=== PATIENT | female | born 1945 | race Caucasian/White ===

== ENCOUNTER → 2018-08-29 13:42 | Outpatient (CLI) | payer MEDICARE, SELFPAY | PROVIDERS: Family Provider Internal Medicine; PCP Internal Medicine; Visit Provider Internal Medicine | DX: M81.0 Age-related osteoporosis without current pathological fracture (principal); Z78.0 Asymptomatic menopausal state; Z87.891 Personal history of nicotine dependence | CPT/HCPCS: 77080 ==

== ENCOUNTER → 2019-01-01 13:36 | Outpatient (CLI) | payer MEDICARE, SELFPAY ==
--- NOTE | 2019-01-01 | DI.ECHO.S_ITS ---
[facility]---------+ [facility] +---------+ : : [address] : : : : [id number] : : : : Phone: [phone]+ Echocardiogram Report + + :Name: TIERRA GIPSON Study Date: 01/01/2019 Height: 65 in : :[facility] Weight: 130 lb : : Gender: Female BSA: 1.6 m2 : :: 1945 Age: 73 yrs BP: 142/78 mmHg: :Reason For Study: Atrial fibrillation : : Performed By: Kateryna Lawrence : :Referring: EDUARDO TAFOYA : + + Interpretation Summary Left ventricular systolic function is moderately reduced with the ejection fraction estimated to be 40-45% with moderate global hypokinesis but no focal wall motion abnormalities and appears slightly less dynamic compared to the previous study. Left ventricular size is at the upper limits of normal and is slightly larger compared to the previous study. The right ventricle is moderately dilated and systolic function is mild to moderately reduced and appears slightly less dynamic compared to the previous study. The right ventricular systolic pressure is estimated to be at least 43 mmHg based on an estimated right atrial pressure of 15 mm Hg, and is likely higher than on the previous study. There is severe biatrial enlargement. Both atria have mildly increased in size since the prior echo exam. There is prolapse of the posterior mitral valve leaflet producing moderate to severe mitral regurgitation. There is moderate to severe tricuspid regurgitation. Both are more prominent compared to the previous study. The aortic valve is moderately calcified with minimal aortic stenosis. The patient was in atrial fibrillation with heart rates between 74-89 bpm during the exam. Procedure: A two-dimensional transthoracic echocardiogram with color flow and Doppler was performed. The study quality was technically good. Comparison is made with the echocardiogram of 11-28-17. The patient was in atrial fibrillation with heart rates between 74-89 bpm during the exam. Left Ventricle: Left ventricular size is at the upper limits of normal. This is slightly larger compared to the previous study. There is normal left ventricular wall thickness. Left ventricular systolic function is moderately reduced. The ejection fraction is estimated to be 40-45%. There is moderate global hypokinesis of the left ventricle. There are no focal wall motion abnormalities. This is slightly less dynamic compared to the previous study. Diastolic function could not be accurately assessed due to atrial fibrillation. Right Ventricle: The right ventricle is moderately dilated. Right ventricular systolic function is mild to moderately reduced. This is slightly less dynamic compared to the previous study. Atria: There is severe biatrial enlargement. Both atria have mildly increased in size since the prior echo exam. The interatrial septum is intact with no evidence for an atrial septal defect. Mitral Valve: The mitral valve leaflets appear moderately thickened, but open well. There is mild calcification extending into the subvalvular apparatus. There is prolapse of the posterior mitral valve leaflet(s). There is moderate to severe mitral regurgitation. This is slightly more prominent compared to the previous study. Aortic Valve: The aortic valve is trileaflet. The aortic valve is moderately calcified. Leaflet mobility is moderately reduced. There is mild aortic stenosis. The calculated aortic valve area is 1.4 cm2. The aortic valve area is 1.2 centimeters squared by planimetry. The peak aortic velocity is 1.6 m/sec. The peak aortic velocity on the previous exam was 1.4 m/sec. The aortic valve mean gradient is 6 mmHg. Severity ratio is 0.41. There is trace aortic regurgitation. Tricuspid Valve: The tricuspid valve leaflets are thin and pliable. There is moderate to severe tricuspid regurgitation. This is more prominent compared to the previous study. The right ventricular systolic pressure is estimated to be at least 43 mmHg based on an estimated right atrial pressure of 15 mm Hg. Likely higher than on the previous study. Pulmonic Valve: The pulmonic valve is not well visualized. There is trace pulmonic regurgitation. This is unchanged compared to the previous study. Great Vessels: The aortic root is normal size. The dimensions of the ascending aorta are normal. The aortic arch could not be visualized. The IVC is dilated (diameter is greater than 2.1 cm) and it collapses less than 50% with a sniff. This suggests a high right atrial pressure of 15 mm Hg. Pericardium/ Pleura There is no pericardial effusion. There is no pleural effusion. MMode/2D Measurements & Calculations LVIDd: 4.9 cm LVOT diam: 2.1 cm LVIDs: 3.8 cm Ao root diam: 3.3 cm FS: 20.9 % Aortic Jxn: 2.8 cm EPSS: 0.56 cm asc Aorta Diam: 3.2 cm IVSd: 0.92 cm LVPWd: 0.78 cm LV mendez. diameter/BSA (cm/m^2): 3.0 LV sys. diameter/BSA (cm/m^2): 2.3 LA dimension: 4.7 cm RA long axis: 6.5 cm LA A2 area: 33.4 cm2 RA area: 33.7 cm2 LA A4 area: 36.0 cm2 RA vol: 147.3 ml LA length (vol): 7.4 cm RA : 89.4 ml/m2 LA vol: 138.1 ml IVC diam: 2.7 cm LA vol index: 83.8 ml/m2 RVDd major: 7.2 cm RVD1 (basal): 4.3 cm RVD2 (mid): 3.3 cm YOVANY (plan): 1.2 cm2 Doppler Measurements & Calculations Ao V2 max: 160.8 cm/sec LVOT Max Mani: 69.5 cm/sec Ao V2 mean: 114.2 cm/sec LV V1 max P.9 mmHg Ao max P.3 mmHg LV V1 VTI: 13.6 cm Ao mean P.8 mmHg YOVANY(I,D): 1.4 cm2 Ao V2 VTI: 32.9 cm YOVANY(V,D): 1.4 cm2 sev ratio: 0.41 YOVANY indexed to BSA (cm^2/m^2): 0.83 MV P1/2t: 51.4 msec TR max mani: 263.9 cm/sec MVA(VTI): 2.6 cm2 TR max P.9 mmHg MR ERO: 0.35 cm2 PA V2 max: 48.7 cm/sec PA V2 mean: 28.6 cm/sec PA mean P.43 mmHg PA Accel Time: 0.09 sec MV V2 mean: 40.6 cm/sec MV P1/2t max mani: 80.7 cm/sec MV mean P.87 mmHg MVA(P1/2t): 4.3 cm2 MV V2 VTI: 17.1 cm MR flow rate: 157.3 cm3/sec SV(LVOT): 45.3 ml MR PISA radius: 0.80 cm Reading Physician:TERRI
== END ==
PROVIDERS: Family Provider Internal Medicine; PCP Internal Medicine; Visit Provider Hospitalist
DX: I08.1 Rheumatic disorders of both mitral and tricuspid valves (principal); I48.2 Chronic atrial fibrillation
CPT/HCPCS: 93306

== ENCOUNTER → 2020-09-15 13:11 | Outpatient (CLI) | payer MEDICARE, SELFPAY ==
--- NOTE | 2020-09-15 | DI.MRI.S_ITS ---
PROCEDURE: MR LUMBAR SPINE WO CON INDICATIONS: Other intervertebral disc degeneration, lumbar reg TECHNIQUE: Noncontrast sagittal T1 spin echo and T2 fast echo, sagittal STIR, axial T1 and T2 fast spin echo through the lumbar spine. In cases with scoliosis, additional coronal T2 fast spin echo may be performed. COMPARISON: [facility], CR, XR LUMBAR SPINE 2 OR 3 VIEWS, 08/22/2020, 13:37. [facility], MR, L-SPINE WITHOUT CONTRAST, 07/13/2017, 13:35. FINDINGS: Image quality: Excellent. Alignment and Curvature: There is normal bony alignment. Bone Marrow: There is a mild acute or subacute compression fracture of the superior endplate of L4 with approximately 20% anterior vertebral body height loss. There is no bony retropulsion noted. Spinal Cord: Conus medullaris terminates at the L1 level. Visualized cord demonstrates normal signal and size. Paraspinous Soft Tissues: No paravertebral masses. T12-L1: Minimal disc bulge. Mild facet hypertrophy. No canal stenosis or foraminal stenosis. L1-L2: Mild disc bulge. Facet and ligament hypertrophy. No central canal stenosis. Mild bilateral foraminal stenosis. L2-L3: Disc bulge, facet and ligament hypertrophy, jmbu-[id number] canal stenosis. This is not significantly changed. Bilateral nozv-xi-[id number] foraminal stenosis with flattening deformity on the exiting bilateral L2 nerve roots. L3-L4: Mild disc bulge. Facet and ligament hypertrophy. Unchanged borderline canal stenosis. Zghg-wp-vlxlikee right and moderate left foraminal narrowing with flattening deformity on the exiting bilateral L3 nerve roots. L4-L5: Unchanged posterior disc post osteophyte. Facet and ligament hypertrophy. Unchanged mild canal stenosis. Moderate right foraminal narrowing and mild to moderate left foraminal narrowing with mild flattening deformity on the exiting bilateral L4 nerve roots. L5-S1: Disc bulge. Facet hypertrophy. No canal stenosis. Moderate right foraminal narrowing with flattening deformity on the exiting right L5 nerve root. IMPRESSION: 1. Mild acute or subacute superior endplate compression fracture of L4. No posterior bony retropulsion. 2. Diffuse degenerative change. 3. Multilevel canal stenosis is mild to moderate at L2-L3, borderline at L3-L4, and mild at L4-L5. 4. Multilevel foraminal narrowing as described above. Dictated by: Narinder Weiss M.D. on 09/15/2020 at 14:54 Approved by: Narinder Weiss M.D. on 09/15/2020 at 15:04
== END ==
PROVIDERS: Family Provider Internal Medicine; PCP Internal Medicine; Referring Provider Internal Medicine; Visit Provider Orthopaedic Surgery
DX: M48.56XA Collapsed vertebra, not elsewhere classified, lumbar region, initial encounter for fracture (principal); M51.36 Other intervertebral disc degeneration, lumbar region; M47.816 Spondylosis without myelopathy or radiculopathy, lumbar region; M48.061 Spinal stenosis, lumbar region without neurogenic claudication
CPT/HCPCS: 72148

== ENCOUNTER → 2021-08-03 10:57 | Outpatient (CLI) | payer MEDICARE, SELFPAY | PROVIDERS: Family Provider Internal Medicine; PCP Internal Medicine; Referring Provider Dermatology MOHS-Micrographic Surgery; Visit Provider Family Medicine | DX: T81.31XA Disruption of external operation (surgical) wound, not elsewhere classified, initial encounter (principal); S81.802A Unspecified open wound, left lower leg, initial encounter; R60.0 Localized edema; Z79.01 Long term (current) use of anticoagulants | CPT/HCPCS: 11042; 99204; 99213 ==

== ENCOUNTER → 2021-08-10 14:16 | Outpatient (CLI) | payer MEDICARE, SELFPAY | PROVIDERS: Family Provider Internal Medicine; PCP Internal Medicine; Referring Provider Internal Medicine; Visit Provider Family Medicine | DX: T81.31XA Disruption of external operation (surgical) wound, not elsewhere classified, initial encounter (principal); S81.802A Unspecified open wound, left lower leg, initial encounter; L08.9 Local infection of the skin and subcutaneous tissue, unspecified; R60.0 Localized edema; Z79.01 Long term (current) use of anticoagulants | CPT/HCPCS: 11042; 87070; 87075; 87077; 87147; 87186; 87205; 99213 ==

== ENCOUNTER → 2021-08-17 13:50 | Outpatient (CLI) | payer MEDICARE, SELFPAY | PROVIDERS: Family Provider Internal Medicine; PCP Internal Medicine; Referring Provider Internal Medicine; Visit Provider Family Medicine | DX: T81.89XA Other complications of procedures, not elsewhere classified, initial encounter (principal); S81.802A Unspecified open wound, left lower leg, initial encounter; L08.9 Local infection of the skin and subcutaneous tissue, unspecified; B95.7 Other staphylococcus as the cause of diseases classified elsewhere; L53.8 Other specified erythematous conditions; R60.0 Localized edema; I48.91 Unspecified atrial fibrillation; Z79.01 Long term (current) use of anticoagulants; Z85.828 Personal history of other malignant neoplasm of skin | CPT/HCPCS: 11042; 99213 ==

== ENCOUNTER → 2021-08-19 12:00 | Outpatient (CLI) | payer MEDICARE, SELFPAY | PROVIDERS: Family Provider Internal Medicine; PCP Internal Medicine; Referring Provider Internal Medicine; Visit Provider Family Medicine | DX: S81.802A Unspecified open wound, left lower leg, initial encounter (principal); R60.0 Localized edema | CPT/HCPCS: 29581 ==

== ENCOUNTER → 2021-08-24 13:34 | Outpatient (CLI) | payer MEDICARE, SELFPAY | PROVIDERS: Family Provider Internal Medicine; PCP Internal Medicine; Referring Provider Internal Medicine; Visit Provider Family Medicine | DX: I87.2 Venous insufficiency (chronic) (peripheral) (principal); L97.812 Non-pressure chronic ulcer of other part of right lower leg with fat layer exposed; L08.89 Other specified local infections of the skin and subcutaneous tissue; B95.2 Enterococcus as the cause of diseases classified elsewhere; R60.0 Localized edema; I48.91 Unspecified atrial fibrillation; Z79.01 Long term (current) use of anticoagulants; Z85.828 Personal history of other malignant neoplasm of skin | CPT/HCPCS: 11042; 99214 ==

== ENCOUNTER → 2021-08-31 15:32 | Outpatient (CLI) | payer MEDICARE, SELFPAY | PROVIDERS: Family Provider Internal Medicine; PCP Internal Medicine; Referring Provider Internal Medicine; Visit Provider Family Medicine | DX: T81.31XA Disruption of external operation (surgical) wound, not elsewhere classified, initial encounter (principal); I87.2 Venous insufficiency (chronic) (peripheral); L97.822 Non-pressure chronic ulcer of other part of left lower leg with fat layer exposed; R60.0 Localized edema; Z79.01 Long term (current) use of anticoagulants; Z85.828 Personal history of other malignant neoplasm of skin | CPT/HCPCS: 11042 ==

== ENCOUNTER 2021-09-05 21:46 | Emergency (ER) | payer MEDICARE, SELFPAY ==
[2021-09-05 21:54] VITALS: BP 188/102; PULSE 94; RESP 12; TEMP 36.6; O2SAT 100; BMI 20.2
--- NOTE | 2021-09-05 22:00 | PC.NURSE ---
pt c/o hypertension this past week stated h/a was gone and the later in conversation c/o h/a no c/p at this time, pt has vague c/o, nadn resp even and unlabored
[2021-09-05 22:06] VITALS: PULSE 124; RESP 31; O2SAT 100
[2021-09-05 22:30] VITALS: BP 161/105; PULSE 89; RESP 22; O2SAT 98
[2021-09-05 23:00] VITALS: BP 151/97; PULSE 83; RESP 15; O2SAT 99
--- NOTE | 2021-09-05 23:21 | ED_ITS ---
HPI - General Adult General Chief complaint: Hypertension Stated complaint: HTN, vision changes Time Seen by Provider: 09/05/21 22:56 Source: patient and EMS Mode of arrival: EMS History of Present Illness HPI narrative: Patient is a 76-year-old female. Has history of atrial fibrillation. Is on atenolol. Is on warfarin. No history of hypertension. She states that a couple days ago she was driving in to town in order to get her protime checked when she had vision changes. It lasted only few seconds/minutes. Completely resolved. She has also had slight headache over the past couple days which seemed to get worse today. She did take an extra dose of her atenolol. She took her blood pressure at home and it was elevated. She is unsure exactly what the blood pressure was. She had a neighbor who is a nurse who advised she come to the emergency department. States that she still currently has a headache but is much better than what it was earlier today. Related Data Home Medications Medication Instructions Recorded Confirmed ATENOLOL (Tenormin) 12.5 mg PO Q DAY #0 05/03/08 CALCIUM CARBONATE/VITAMIN D3 600 mg PO Q DAY #0 05/03/08 (Oyster Shell Calcium-Vit D Tab) MULTIVITAMIN (Multivitamin 1 cap PO EVERY DAY #0 05/03/08 -) VITAMIN C - 1,000 mg PO Q DAY #0 05/03/08 (VITAMIN C) warfarin 6 mg tablet (Coumadin) 12.5 mg PO QDAY #0 01/12/13 Allergies Allergy/AdvReac Type Severity Reaction Status Date / Time cephalexin Allergy Unknown Unverified 11/02/17 11:57 levofloxacin Allergy Unknown Unverified 11/02/17 11:57 Penicillins Allergy Unknown Unverified 11/02/17 11:57 Review of Systems Constitutional Constitutional: Denies fever(s) and Reports headache(s) Eyes Eyes: Reports as per HPI and Reports system reviewed and no additional compl aints, except as documented ENT Ears, Nose, Mouth, and Throat: Reports headache(s) Cardiovascular Cardiovascular: Denies chest pain and Denies dyspnea Respiratory Respiratory: Denies dyspnea Gastrointestinal Gastrointestinal: Reports system reviewed and no additional complaints, except as documented Integumentary/Breasts Skin/Breast: Reports system reviewed and no additional complaints, except as documented Neurologic Neurologic: Reports headache(s) Hematologic/Lymphatic On Anticoagulants: Yes Patient History Medical History Atrial fibrillation Sacral dysfunction Scoliosis Social History Smoking Status: Former smoker Smoking Status: Former smoker alcohol intake frequency: 0-2 drinks per day Substance Use Type: does not use Exam Initial Vital Signs Initial Vital Signs: Vital Signs Temperature 97.9 F 09/05/21 21:54 Pulse Rate 94 H 09/05/21 21:54 Respiratory Rate 12 09/05/21 21:54 Blood Pressure 188/102 H 09/05/21 21:54 Pulse Oximetry 100 09/05/21 21:54 HENMT Head: normal to inspection and normocephalic Resp Effort & Inspection: normal respiratory effort Auscultation: clear to auscultation bilaterally Cardio Rate: regular rate Rhythm: abnormal rhythm Skin General: no rashes or lesions noted Neuro General: patient alert, patient awake, patient oriented x3 and moves all extremities Extrem General: No edema Psych Appearance: grossly normal and well kempt Course Orders Ordered: ED Orders 09/05/21 22:13 EKG-12 Lead Stat Vital Signs Vital signs: Vital Signs - 8 hr 09/05/21 21:54 09/05/21 22:06 09/05/21 22:30 Temperature 97.9 F Pulse Rate 94 H 124 H 89 Respiratory Rate 12 31 H 22 Blood Pressure 188/102 H 161/105 H Pulse Oximetry 100 100 98 09/05/21 23:00 Temperature Pulse Rate 83 Respiratory Rate 15 Blood Pressure 151/97 H Pulse Oximetry 99 Medical Decision Making ECG Data Attestation: I personally reviewed and interpreted this ECG as follows: Interpretation: Atrial fibrillation Ventricular rate 81 Occasional previous C Normal QRS Normal QTC LVH No ST T wave changes MDM Narrative Medical decision making narrative: Patient's blood pressure today is elevated but not at the point that would require an emergent reduction here in the emergency department. She has a normal neurologic exam. She does have atrial fibrillation on her EKG but sounds like she is in persistent AFib. She does not have a history of high blood pressure. I have low suspicion for ACS. Low suspicion for CVA. Low suspicion for TIA. Patient not clinically in heart failure. I feel that we can hold on further workup for now. I did discuss the importance of taking her blood pressure at home so that she can talk with her primary doctor about potentially starting her on some medications if it is persistently elevated. She was given strict return precautions and follow-up instructions. She expressed understanding and agreement. Discharge Plan Departure Patient Disposition: Home Clinical Impression: Hypertension Instructions: DI for High Blood Pressure Activity Restrictions/Additional Instructions: Take your blood pressure at home like we discussed and continue to take all of your medications as directed. Contact your primary doctor on Tuesday for a follow-up. Return to the emergency department for any new or worsening symptoms. Prescriptions: No Action ATENOLOL (Tenormin) 12.5 mg PO Q DAY Qty: 0 0RF CALCIUM CARBONATE/VITAMIN D3 (Oyster Shell Calcium-Vit D Tab) 600 mg PO Q DAY Qty: 0 0RF MULTIVITAMIN (Multivitamin -) 1 cap PO EVERY DAY Qty: 0 0RF VITAMIN C - (VITAMIN C) 1,000 mg PO Q DAY Qty: 0 0RF warfarin [Coumadin] 6 MG tablet 12.5 mg PO QDAY Qty: 0 0RF Referrals: Trevon Winslow MD [Primary Care Provider] -
== END 2021-09-05 23:33 | disposition home or self-care (01) ==
PROVIDERS: Emergency Provider Emergency Medicine; Family Provider Internal Medicine; PCP Internal Medicine
DX: I10 Essential (primary) hypertension (principal); I48.91 Unspecified atrial fibrillation; Z79.01 Long term (current) use of anticoagulants; Z87.891 Personal history of nicotine dependence
CPT/HCPCS: 93005; 93010; 99283

== ENCOUNTER → 2021-09-08 14:06 | Outpatient (CLI) | payer MEDICARE, SELFPAY | PROVIDERS: Family Provider Internal Medicine; PCP Internal Medicine; Referring Provider Internal Medicine; Visit Provider Family Medicine | DX: T81.31XA Disruption of external operation (surgical) wound, not elsewhere classified, initial encounter (principal); I87.2 Venous insufficiency (chronic) (peripheral); L97.812 Non-pressure chronic ulcer of other part of right lower leg with fat layer exposed; L08.9 Local infection of the skin and subcutaneous tissue, unspecified; R60.0 Localized edema; Z79.01 Long term (current) use of anticoagulants; Z85.828 Personal history of other malignant neoplasm of skin | CPT/HCPCS: 11042; 87070; 87075; 87077; 87186; 87205; 99213 ==

== ENCOUNTER → 2021-09-10 11:07 | Outpatient (CLI) | payer MEDICARE, SELFPAY | PROVIDERS: Family Provider Internal Medicine; PCP Internal Medicine; Referring Provider Internal Medicine; Visit Provider Family Medicine | DX: I87.2 Venous insufficiency (chronic) (peripheral) (principal); L97.822 Non-pressure chronic ulcer of other part of left lower leg with fat layer exposed | CPT/HCPCS: 29580 ==

== ENCOUNTER → 2021-09-17 15:02 | Outpatient (CLI) | payer MEDICARE, SELFPAY | PROVIDERS: Family Provider Internal Medicine; PCP Internal Medicine; Referring Provider Internal Medicine; Visit Provider Family Medicine | DX: I87.2 Venous insufficiency (chronic) (peripheral) (principal); L97.822 Non-pressure chronic ulcer of other part of left lower leg with fat layer exposed | CPT/HCPCS: 29580 ==

== ENCOUNTER → 2021-09-21 13:08 | Outpatient (CLI) | payer MEDICARE, SELFPAY | PROVIDERS: Family Provider Internal Medicine; PCP Internal Medicine; Referring Provider Internal Medicine; Visit Provider Family Medicine | DX: T81.31XA Disruption of external operation (surgical) wound, not elsewhere classified, initial encounter (principal); I87.2 Venous insufficiency (chronic) (peripheral); L97.822 Non-pressure chronic ulcer of other part of left lower leg with fat layer exposed; R60.0 Localized edema; I10 Essential (primary) hypertension; Z79.01 Long term (current) use of anticoagulants; Z85.828 Personal history of other malignant neoplasm of skin | CPT/HCPCS: 99212; 99213 ==

== ENCOUNTER → 2021-09-26 12:38 | Outpatient (CLI) | payer MEDICARE, SELFPAY ==
--- NOTE | 2021-09-26 | DI.MRI.S_ITS ---
PROCEDURE: MR LUMBAR SPINE WO CON INDICATIONS: SPINAL STENOSIS TECHNIQUE: Noncontrast sagittal T1 spin echo and T2 fast echo, sagittal STIR, axial T1 and T2 fast spin echo through the lumbar spine. In cases with scoliosis, additional coronal T2 fast spin echo may be performed. COMPARISON: [facility], MR, MR LUMBAR SPINE WO CON, 09/15/2020, 13:30. FINDINGS: Straightening of the usual lumbar lordosis. Otherwise normal alignment. Vertebral body heights maintained. No suspicious focal marrow signal abnormality. Mild discogenic marrow edema at the opposing endplates from L3-L4 through L5-S1 with small Schmorl nodes. Facet hypertrophy from L2-L3 through L5-S1 with varying degrees of mild periarticular bone marrow edema and small facet effusions. Normal position and appearance of the conus. Prevertebral and paraspinous soft tissues are normal in appearance. T12-L1: No spinal canal or neural foraminal stenosis. L1-L2: Flattening of the ventral thecal sac by diffuse disc bulge without mass effect upon the traversing L2 nerve roots. Foraminal components of the disc bulge and facet hypertrophy combine to produce mild bilateral neural foraminal stenosis. L2-L3: Flattening of the ventral thecal sac by diffuse disc bulge with mild displacement of the descending right L3 nerve roots in the right subarticular zone. Mild bilateral neural foraminal stenosis due to foraminal components of the disc bulge and facet hypertrophy. L3-L4: No spinal canal stenosis despite diffuse disc bulge flattening the ventral thecal sac. Mild right and moderate left neural foraminal stenosis due to foraminal components of the disc bulge in conjunction with facet hypertrophy. L4-L5: Flattening of the ventral thecal sac by disc material without mass effect upon the traversing L5 nerve roots. Foraminal components of the disc bulge and facet hypertrophy combine to produce moderate right and mild left neural foraminal stenosis without apparent mass effect upon the exiting L4 nerve roots. L5-S1: Diffuse disc bulge flattens and indents the ventral thecal sac. Mild displacement of the descending S1 nerve roots in both subarticular zones. Moderate right and mild left neural foraminal stenosis due to foraminal components of the disc bulge and facet hypertrophy flattening the exiting right L5 nerve root. IMPRESSION: Multilevel multifactorial degenerative changes, worst at L5-S1. Dictated by: Desmond Nava M.D. on 09/28/2021 at 16:41 Approved by: Desmond Nava M.D. on 09/28/2021 at 16:45
== END ==
PROVIDERS: Family Provider Internal Medicine; PCP Internal Medicine; Referring Provider Orthopaedic Surgery; Visit Provider Orthopaedic Surgery
DX: M47.816 Spondylosis without myelopathy or radiculopathy, lumbar region (principal); M47.817 Spondylosis without myelopathy or radiculopathy, lumbosacral region; M48.062 Spinal stenosis, lumbar region with neurogenic claudication; M48.07 Spinal stenosis, lumbosacral region
CPT/HCPCS: 72148

== ENCOUNTER → 2021-09-28 13:34 | Outpatient (CLI) | payer MEDICARE, SELFPAY | PROVIDERS: Family Provider Internal Medicine; PCP Internal Medicine; Referring Provider Internal Medicine; Visit Provider Family Medicine | DX: T81.89XA Other complications of procedures, not elsewhere classified, initial encounter (principal); I87.2 Venous insufficiency (chronic) (peripheral); L97.822 Non-pressure chronic ulcer of other part of left lower leg with fat layer exposed; R60.0 Localized edema; I48.91 Unspecified atrial fibrillation; Z79.01 Long term (current) use of anticoagulants; Z85.828 Personal history of other malignant neoplasm of skin | CPT/HCPCS: 99212 ==

== ENCOUNTER → 2021-10-05 13:15 | Outpatient (CLI) | payer MEDICARE, SELFPAY | PROVIDERS: Family Provider Internal Medicine; PCP Internal Medicine; Referring Provider Internal Medicine; Visit Provider Family Medicine | DX: Z09 Encounter for follow-up examination after completed treatment for conditions other than malignant neoplasm (principal); I87.2 Venous insufficiency (chronic) (peripheral); I48.91 Unspecified atrial fibrillation; Z79.01 Long term (current) use of anticoagulants; Z85.828 Personal history of other malignant neoplasm of skin | CPT/HCPCS: 99212; 99213 ==

== ENCOUNTER → 2022-01-18 13:22 | Outpatient (CLI) | payer MEDICARE, SELFPAY ==
[2022-01-18 14:47] LABS: COVID19 -Nasal RAPID Negative (Negative)
== END ==
PROVIDERS: Family Provider Internal Medicine; PCP Internal Medicine; Visit Provider Physical Medicine & Rehabilitation
DX: Z20.822 Contact with and (suspected) exposure to COVID-19 (principal)
CPT/HCPCS: 87635; C9803

== ENCOUNTER 2022-01-19 13:39 | Outpatient (CLI) | payer MEDICARE, SELFPAY ==
[2022-01-19] VITALS (9 sets, daily range): BP systolic 126–154; BP diastolic 73–91; PULSE 66–76; RESP 12–21; TEMP 36.2; O2SAT 97–100
--- NOTE | 2022-01-19 13:41 | DI.RAD.S_ITS ---
PROCEDURE: PAIN L/S TRANSFORAM INJECT DAQUAN COMPARISON: MRI lumbar spine, 09/26/2021. INDICATIONS: SPONDYLOSIS FINDINGS: 7 intraoperative fluoroscopy images demonstrate needle placement at L4-L5. IMPRESSION: Fluoroscopy for needle placement. Dictated by: Lissette Mckay M.D. on 01/19/2022 at 17:38 Approved by: Lissette Mckay M.D. on 01/19/2022 at 17:39
[2022-01-19] MEDS: MIDAZOLAM 2 MG/2 ML VIAL IV (15:06)
[2022-01-19] MEDS: BETAMETHASONE 30 MG/5 ML MDV 12 MG INJ (15:11)
[2022-01-19] MEDS: BUPIVACAINE 0.25% (PF) VIAL 2 ML INJ (15:12)
[2022-01-19] MEDS: IOPAMIDOL 15 ML VIAL 3 ML INJ (15:12)
[2022-01-19] MEDS: DEXAMETHASONE 10 MG/ML VIAL 20 MG INJ (15:12)
--- NOTE | 2022-01-19 15:28 | PM.PROC.IR.1 ---
Date/Time/Diagnoses Date of procedure: 01/19/22 Time of procedure: 15:28 Pre-procedure diagnosis: 1. FORAMINAL STENOSIS WITH LE SYMPTOMS Procedure Notes Procedure: 1. FLUOROSCOPICALLY GUIDED CONTRAST CONTROLLED TRANSFORAMINAL EPIDURAL STEROID INJECTION - BILATERAL L4/5 TFESI Indications: Caitlin is referred by Dr. Muñoz for treatment of Foraminal Stenosis with bilateral LE Symptoms Physician: Charlie Ramos Total Fluoroscopy time (seconds): 19 Total sedation minutes: 23 Complications: none Procedure in detail & Post-procedure care: FINDINGS Foraminal Nerve Root Compression secondary to disc disease and facet hypertrophy DESCRIPTION OF PROCEDURE Following review of allergy and review of potential side effects and complications, including, but not necessarily limited to, infection, allergic reaction, local tissue breakdown, stroke, temporary or permanent nerve injury, paralysis, and possible , the patient indicated that the patient understood and agreed to proceed. An informed consent document was signed by the patient, witnessed by a nurse, and placed in the patient's chart. Additionally, other treatment options including medications, modalities, and physical therapy were reviewed with the patient. After review of previous anaesthesic history and IV conscious sedation the patient was deemed safe to proceed with today?s procedure with IV conscious sedation as ASA class II designation. Safety time-out was performed to confirm patient ID, procedure to be performed and site of procedure. IV sedation was accomplished with a combination of 2mg of Versed was administered by the RN after DO order, titrated to patient comfort during the course of the procedure while the patient remained responsive to all verbal commands In the prone position following sterile prep and drape of the lumbar region, the right L4/5 posterior neuroforamen was identified fluoroscopically. The skin was anesthetized via a 25-gauge 1.5-inch needle with 1% lidocaine solution. At this point, a 25-gauge 3.5-inch spinal needle was atraumatically introduced and advanced under fluoroscopic guidance through the posterior right L4/5 neuroforamen to approximately the anterior aspect of the canal. Depth was confirmed on lateral view. Following negative aspiration, injection of approximately 1.5cc of Isovue 200 under live fluoroscopy in the AP view confirmed excellent flow along the nerve root, into the epidural space without vascular or intrathecal uptake observed Radiological data, including multiple fluoroscopic views of the lumbosacral spine, reveal a spinal needle at the right L4/5 posterior neuroforamen. Subsequent views show flow of contrast material flowing superiorly and inferiorly along the nerve root confirming epidural flow. Subsequently, a test dose of 1.5cc of 1% lidocaine solution was administered and patient was observed for two minutes for signs or symptoms of complications, including abdominal pain, shortness of breath, bilateral upper or lower extremity weakness, nausea and vomiting, prior to steroid injection. At this point, a total of 3cc or 20mg of dexamethasone and 6mg betamethasone was injected without incident. Attention was then refocused to the left L4/5 level where the identical procedure was replicated. The procedure tolerated the procedure well without signs or symptoms of complications prior to transfer to the recovery area continued monitoring without incident. The patient was then transferred to the recovery area where they were observed for an appropriate time after the injection. The patient reported a VAS score of 7 prior to the procedure and a post-procedure VAS of 0. POST OP INSTRUCTIONS The patient was provided a Pain Log to continue to record their response to the target-specific procedure prior to follow-up visit with their referring physician. Additionally, specific post-injection care instructions and a contact number to our office were provided if concerns arise regarding possible complications associated with the procedure are suspected.
== END 2022-01-19 15:44 | disposition home or self-care (01) ==
LOC: RAD 13:41
PROVIDERS: Family Provider Internal Medicine; PCP Internal Medicine; Referring Provider Physical Medicine & Rehabilitation; Visit Provider Physical Medicine & Rehabilitation
DX: M48.061 Spinal stenosis, lumbar region without neurogenic claudication (principal); M51.16 Intervertebral disc disorders with radiculopathy, lumbar region
CPT/HCPCS: 64483; 99152; 99153; J0702; J1100; J2250

== ENCOUNTER → 2022-07-31 14:06 | Outpatient (CLI) | payer MEDICARE, SELFPAY ==
--- NOTE | 2022-07-31 14:08 | DI.MRI.S_ITS ---
PROCEDURE: MR HEAD/BRAIN WO CON INDICATIONS: HEADACHES TECHNIQUE: Noncontrast axial T1 spin echo, axial T2 fast spin echo, sagittal and axial FLAIR, coronal T2 fast spin echo, axial gradient echo, axial diffusion and ADC through the brain. COMPARISON: None. FINDINGS: Image quality: Excellent. CSF Spaces: Basal cisterns are patent. No extra-axial fluid collections. Ventricles are normal in size and shape. Brain: No intracranial masses or hemorrhage. Serrato/white matter interface is normal. Brainstem appears normal. Diffusion-weighted sequence is unremarkable without evidence of acute infarct. Normal intravascular flow voids are present. Atrophy and chronic ischemic change noted Skull and face: Calvarium has normal marrow signal. Orbits appear normal. Bilateral intraocular lens replacements noted. Sinuses: Sinuses and mastoids are clear. IMPRESSION: Mild atrophy and chronic ischemic change without acute infarct, hemorrhage or mass lesion Approved by: Leon French M.D. on 08/01/2022 at 9:06
== END ==
PROVIDERS: Family Provider Internal Medicine; PCP Internal Medicine; Referring Provider Internal Medicine; Visit Provider Internal Medicine
DX: R51.9 Headache, unspecified (principal)
CPT/HCPCS: 70551

== ENCOUNTER → 2022-10-07 12:32 | Outpatient (CLI) | payer MEDICARE, SELFPAY ==
--- NOTE | 2022-10-07 | DI.US.S_ITS ---
PROCEDURE: US PERIPH VENOUS LOW EXTREM LT INDICATIONS: LEFT LEG SWELLING TECHNIQUE: Real-time imaging, as well as color and pulse Doppler interrogation, were performed of the lower extremity deep veins from the inguinal ligament to the popliteal fossa. COMPARISON: US, US VENOUS REFLUX DPLX DAQUANAT, 04/02/2016, 13:42. FINDINGS: The common femoral, femoral and popliteal veins are normally compressible, and free of intraluminal thrombus. Mild wall thickening anteriorly seen involving the left common femoral and mid left superficial femoral vein Color and pulse Doppler demonstrate normal phasic intraluminal flow. There is normal augmentation response to distal compression maneuver. IMPRESSION: 1. No acute DVT. 2. Mild anterior wall thickening of the left common femoral and mid superficial femoral vein which may be related to chronic DVT. Dictated by: Mike PARDO Interpreted: Nithya Jimenez MD on 10/07/2022 at 13:15 Transcribed by: MAGALIS on 10/07/2022 at 13:17 Approved by: Nithya Jimenez M.D. on 10/07/2022 at 20:20
== END ==
PROVIDERS: Family Provider Internal Medicine; PCP Internal Medicine; Referring Provider Physician Assistant; Visit Provider Physician Assistant
DX: C44.729 Squamous cell carcinoma of skin of left lower limb, including hip (principal); M79.89 Other specified soft tissue disorders
CPT/HCPCS: 36415; 85610; 93971

== ENCOUNTER → 2022-10-07 14:10 | Outpatient (CLI) | payer MEDICARE, SELFPAY ==
[2022-10-07 15:51] LABS: INR 1.9 (0.9-1.3); Prothrombin Time 22.5 SECONDS (10.1-12.7)
== END ==
PROVIDERS: Family Provider Internal Medicine; PCP Internal Medicine; Referring Provider Dermatology MOHS-Micrographic Surgery; Visit Provider Dermatology MOHS-Micrographic Surgery
DX: C44.729 Squamous cell carcinoma of skin of left lower limb, including hip (principal)
CPT/HCPCS: 36415; 85610

== ENCOUNTER → 2022-10-09 09:39 | Outpatient (CLI) | payer MEDICARE, SELFPAY ==
--- NOTE | 2022-10-09 | DI.MRI.S_ITS ---
PROCEDURE: MR KNEE LT WO CON INDICATIONS: Pain in left knee TECHNIQUE: Noncontrast sagittal PD fast spin echo and T2 fast spin echo with fat saturation, sagittal 3-D FLASH with fat saturation; coronal T1 spin echo and PD fast spin echo with fat saturation, and axial PD fast spin echo with fat saturation through the knee. COMPARISON: [facility] [place], CR, XR KNEE 4+ VIEWS LEFT, 10/07/2022, 11:29. FINDINGS: Image quality: Excellent. Menisci: There is linear horizontal high T2 signal intensity traversing the inner, middle, and peripheral thirds of the posterior horn medial meniscus, demonstrating inferior articular surface extension, indicating horizontal tearing. There is linear horizontal high T2 signal intensity traversing the inner 3rd of the posterior horn lateral meniscus, demonstrating inferior articular surface extension, indicating horizontal tearing. Cruciate ligaments: The anterior and posterior cruciate ligaments appear intact. Medial structures: The medial collateral ligament appears intact. Visualized portions of the pes anserinus tendons appear normal. No abnormal bursal fluid. Lateral structures: The lateral collateral ligament, long and short heads of the biceps femoris tendon appear intact. The popliteus tendon appears normal. Iliotibial band appears normal. Anterior structures: The quadriceps and patellar tendons appear intact. There is mild T2 signal elevation within the quadriceps and patellar tendons at the patellar insertion site. Patellar alignment is normal. No femoral trochlear dysplasia or ventral trochlear prominence. No edema in the infrapatellar fat pad. Bones and cartilage: No bone marrow contusions or fractures. There is mild articular cartilage loss overlying the medial and lateral patellar facets. Severe articular cartilage loss diffusely overlies the weight-bearing aspects of the medial femoral condyle and medial tibial plateau. Joint space: There is a moderate knee joint effusion and a small Barron's cyst. Normal appearing synovial plicae are incidentally noted. IMPRESSION: 1. Tricompartmental osteoarthritis with associated articular cartilage loss. 2. Medial and lateral meniscal tearing. 3. Knee joint effusion and Barron's cyst. 4. Mild quadriceps and patellar tendinopathy. Dictated by: Randal Wolf M.D. on 10/11/2022 at 9:18 Approved by: Randal Wolf M.D. on 10/11/2022 at 9:21
== END ==
PROVIDERS: Family Provider Internal Medicine; PCP Internal Medicine; Referring Provider Physician Assistant Medical; Visit Provider Physician Assistant Medical
DX: S83.242A Other tear of medial meniscus, current injury, left knee, initial encounter (principal); S83.282A Other tear of lateral meniscus, current injury, left knee, initial encounter; M17.12 Unilateral primary osteoarthritis, left knee; M25.562 Pain in left knee; M25.462 Effusion, left knee; M71.22 Synovial cyst of popliteal space [Baker], left knee
CPT/HCPCS: 73721

== ENCOUNTER → 2023-01-20 16:49 | Outpatient (CLI) | payer MEDICARE, SELFPAY ==
--- NOTE | 2023-01-20 16:51 | DI.RAD.S_ITS ---
PROCEDURE: XR LUMBAR SPINE MIN 4V INDICATIONS: progressive LBP TECHNIQUE: 5 views of the lumbar spine were acquired, including bilateral oblique views. COMPARISON: [facility], , L-SPINE 2-3 VIEWS, 05/18/2012, 15:06. FINDINGS: Bones: 5 nonrib-bearing vertebrae are present. Slight rightward curvature of the lumbar spine. Severe disc height loss at L4-5, moderate disc height loss at L3-4 and L1-2, and [id number] at remaining levels. Facet arthrosis L3 through S1. Soft tissues: Overlying bowel gas pattern is normal. No suspicious soft tissue calcifications. Oblique images: No pars defects. IMPRESSION: Multilevel degenerative disc disease and facet arthrosis, ranging from mild-moderate to severe, and lower lumbar facet arthrosis. Dictated by: Tomás Chawla M.D. on 01/21/2023 at 9:39 Approved by: Tomás Chawla M.D. on 01/21/2023 at 9:41
== END ==
PROVIDERS: Family Provider Internal Medicine; PCP Internal Medicine; Referring Provider Physical Medicine & Rehabilitation; Visit Provider Physical Medicine & Rehabilitation
DX: M41.9 Scoliosis, unspecified (principal); M51.26 Other intervertebral disc displacement, lumbar region; M51.36 Other intervertebral disc degeneration, lumbar region; M47.816 Spondylosis without myelopathy or radiculopathy, lumbar region; M47.817 Spondylosis without myelopathy or radiculopathy, lumbosacral region
CPT/HCPCS: 72110

== ENCOUNTER 2023-03-22 12:31 | Outpatient (CLI) | payer MEDICARE, SELFPAY ==
[2023-03-22] VITALS (9 sets, daily range): BP systolic 137–161; BP diastolic 72–97; PULSE 70–85; RESP 14–20; TEMP 36.3; O2SAT 95–100
--- NOTE | 2023-03-22 12:34 | DI.RAD.S_ITS ---
PROCEDURE: PAIN L/S FACET INJ/BLK 1ST DAQUAN COMPARISON: [facility], CR, XR LUMBAR SPINE MIN 4V, 01/20/2023, 16:46. INDICATIONS: Bilateral L4-L5 and S1 medial branch block LA FINDINGS: Fluoroscopic spot filming was performed to verify placement of spinal needles on both sides at the L4, L5, and S1 levels, as labeled on the films. Appropriate location of the needle tips was confirmed by injection of iodinated contrast. IMPRESSION: Intraprocedural examination demonstrating appropriate positions of the needles. Dictated by: Feliz Cutler M.D. on 03/22/2023 at 19:55 Approved by: Feliz Cutler M.D. on 03/22/2023 at 19:56
[2023-03-22] MEDS: MIDAZOLAM 2 MG/2 ML VIAL IV (13:30)
[2023-03-22] MEDS: LIDOCAINE 1% 20 ML 5 ML INJ (13:41)
[2023-03-22] MEDS: BUPIVACAINE 0.5% (PF) 10 ML VIAL 3 ML INJ (13:42)
[2023-03-22] MEDS: IOPAMIDOL 15 ML VIAL 3 ML INJ (13:42)
--- NOTE | 2023-03-22 13:57 | P.PCN_ITS ---
Date/Time/Diagnoses Date of procedure: 03/22/23 Time of procedure: 13:57 Pre-procedure diagnosis: 1. FACET ARTHROPATHY Post-procedure diagnosis: same Procedure Notes Procedure: 1. BILATERAL- L4, L5 and S1 DIAGNOSTIC MB BLOCKS with LA Anesthetic Indications: Caitiln is referred by Dr. Winslow for treatment of Bilateral Axial LBP. Physician: Charlie Ramos Total Fluoroscopy time (seconds): 9 Total sedation minutes: 20 Complications: none Procedure in detail & Post-procedure care: DESCRIPTION OF PROCEDURE Fluoroscopically guided, contrast-controlled bilateral L4, L5 and S1 medial branch blocks with 0.5cc of 0.5% Marcaine. Following review of allergy and review of potential side effects and complications, including, but not necessarily limited to, infection, allergic reaction, local tissue breakdown, nerve injury, paralysis, stroke and possible , the patient indicated that the patient understood and agreed to proceed. An informed consent document was signed by the patient, witnessed by a nurse, and placed in the patient's chart. After review of previous anaesthesic history and IV conscious sedation the patient was deemed safe to proceed with today's procedure with IV conscious sedation as ASA class II designation. Safety time-out was performed to confirm patient ID, procedure to be performed and site of procedure. IV sedation was accomplished with a combination of 2mg of Versed was administered by the RN after DO order, titrated to patient comfort during the course of the procedure while the patient remained responsive to all verbal commands. In the prone position, following sterile prep and drape of the lumbar region, the right L4, L5 and S1 anatomical location of the medial branch of the dorsal ramus was identified fluoroscopically. Subsequently an anesthetic skin wheal using 1% lidocaine solution was initiated at each of the anatomical spots. Subsequently then a 22-gauge 3.5-inch spinal needle was atraumatically introduced and advanced under fluoroscopic guidance at each of the corresponding sites at the right L4, L5 and S1 MB. After negative aspiration, 0.2cc of Isovue 200 was injected, confirming placement without vascular or intrathecal uptake. Subsequently then 0.5cc of 0.5% Marcaine solution was injected at each of the corresponding sites at the right L4, L5 and S1 medial branch locations. The identical procedure was replicated on the left. The patient tolerated the procedure well without signs or symptoms of complications prior to transfer to the recovery area continued monitoring without incident. Post-procedure, the patient was monitored initiating provocative activities to measure the amount of relief from block of the facetogenic pain. The patient reported a VAS of 7 prior to the procedure and a post-procedure VAS of 1. It has been a pleasure to assist in the diagnostic and therapeutic care of your patient. POST OP INSTRUCTIONS The patient was provided with a Pain Log to complete over the next several hours and subsequent days prior to the patient's follow up with the ordering physician. If the patient has merchandise planning manager relief to the solution applied, then they may be a candidate for medial branch rhizotomy. The patient is aware, was provided, once again, with a Pain Log and will follow up with the referring physician for review and clinical correlation.
== END 2023-03-22 14:10 | disposition home or self-care (01) ==
LOC: RAD 12:32
PROVIDERS: Family Provider Internal Medicine; PCP Internal Medicine; Referring Provider Physical Medicine & Rehabilitation; Visit Provider Physical Medicine & Rehabilitation
DX: M47.816 Spondylosis without myelopathy or radiculopathy, lumbar region (principal); M47.817 Spondylosis without myelopathy or radiculopathy, lumbosacral region
CPT/HCPCS: 64493; 64494; 99152; J2250

== ENCOUNTER → 2023-06-09 13:41 | Outpatient (CLI) | payer MEDICARE, SELFPAY ==
--- NOTE | 2023-06-09 | DI.ECHO.S_ITS ---
[facility]---------[facility] +---------+ : : [address] : : : : [id number] : : : : Phone: [phone]+ Echocardiogram Report + + :Name: TIERRA GIPSON Study Date: 06/09/2023 Height: 65 in : :[facility] ReadingLocation: Weight: 125 lb : : Gender: Female BSA: 1.6 m2 : :: 1945 Age: 78 yrs BP: 140/93 mmHg: :Reason For Study: Nonrheumatic Mitral Valve Insufficiency : :Ordering Physician: CAMILLA, : :GARCIA Performed By: Emiliana Hoff : :Referring: GARCIA GUZMAN : + + Interpretation Summary Left ventricular systolic function is mildly reduced. The ejection fraction is estimated to be 45-50%. Diastolic function could not be accurately assessed due to atrial fibrillation. The right ventricle is mild to moderately dilated. Right ventricular systolic function is borderline reduced. The right ventricular systolic pressure is estimated to be at least 45 mmHg based on an estimated right atrial pressure of 15 mm Hg. The left atrium is severely dilated. The right atrium is severely dilated. The mitral valve leaflets appear mildly thickened, but open well. The mitral valve chordae are thickened and/or calcified. There is mild mitral valve prolapse. There is prolapse of the posterior mitral valve leaflet(s). The mitral regurgitant jet is eccentrically directed. There is aortic stenosis wihch is at least moderate possibly severe given that this is a low gradient basd on LV stroke index around 18 mL/m2/beat. The ascending aorta is mildly enlarged. Procedure: A two-dimensional transthoracic echocardiogram with color flow and Doppler was performed. The study quality was technically good. Comparison is made with the echocardiogram of 05/31/2011. The patient was in atrial fibrillation with heart rates between 52-83 bpm during the exam. Left Ventricle: The left ventricle is normal in size. Left ventricular systolic function is mildly reduced. The ejection fraction is estimated to be 45-50%. There is borderline global hypokinesis of the left ventricle. Diastolic function could not be accurately assessed due to atrial fibrillation. Right Ventricle: The right ventricle is mild to moderately dilated. Right ventricular systolic function is borderline reduced. Atria: The left atrium is severely dilated. The right atrium is severely dilated. There is no Doppler evidence for an interatrial shunt. Mitral Valve: The mitral valve leaflets appear mildly thickened, but open well. The mitral valve chordae are thickened and/or calcified. There is mild mitral valve prolapse. There is prolapse of the posterior mitral valve leaflet (s). The mitral valve mean gradient is 3 mmHg. There is moderate to severe mitral regurgitation. The mitral regurgitant jet is eccentrically directed. Aortic Valve: The aortic valve is heavily calcified. The peak aortic velocity is 3.15 m/sec. The aortic valve mean gradient is 24 mmHg. There is aortic stenosis wihch is at least moderate possibly severe given that this is a low gradient basd on LV stroke index around 18 mL/m2/beat. There is trace aortic regurgitation. Tricuspid Valve: The tricuspid valve leaflets are thickened and/or calcified, but open well. The tricuspid annulus is dilated. There is no tricuspid stenosis. There is severe tricuspid regurgitation. The right ventricular systolic pressure is estimated to be at least 45 mmHg based on an estimated right atrial pressure of 15 mm Hg. Pulmonic Valve: The pulmonic valve leaflets are thin and pliable; valve motion is normal. There is no pulmonic valvular stenosis. There is trace pulmonic regurgitation. Great Vessels: The aortic root is normal size. The ascending aorta is mildly enlarged. The pulmonary artery is normal size. The IVC is dilated (diameter is greater than 2.1 cm) and it collapses less than 50% with a sniff. This suggests a high right atrial pressure of 15 mm Hg. Pericardium/ Pleura There is no pericardial effusion. There is no pleural effusion. MMode/2D Measurements & Calculations LVIDd: 4.3 cm LVOT diam: 1.9 cm LVIDs: 3.4 cm Ao root diam: 3.4 cm FS: 20.9 % asc Aorta Diam: 3.6 cm IVSd: 1.2 cm LVPWd: 0.90 cm LV mendez. diameter/BSA (cm/m^2): 2.7 LV sys. diameter/BSA (cm/m^2): 2.1 LA A2 area: 27.5 cm2 RA long axis: 6.9 cm LA A4 area: 27.3 cm2 RA area: 33.6 cm2 LA length (vol): 7.1 cm RA vol: 140.2 ml LA vol: 90.0 ml RA : 86.5 ml/m2 LA vol index: 55.6 ml/m2 RVD1 (basal): 4.6 cm LVLs ap4: 5.6 cm LVLd ap2: 6.5 cm TAPSE_phl: 1.8 cm LVLs ap2: 5.9 cm Doppler Measurements & Calculations Ao V2 max: 297.0 cm/sec LVOT Max Mani: 63.8 cm/sec Ao V2 mean: 211.8 cm/sec LV V1 max P.6 mmHg Ao max P.0 mmHg LV V1 VTI: 11.6 cm Ao mean P.4 mmHg YOVANY(I,D): 0.48 cm2 Ao V2 VTI: 67.9 cm YOVANY(V,D): 0.61 cm2 sev ratio: 0.17 YOVANY indexed to BSA (cm^2/m^2): 0.30 MVA(VTI): 1.3 cm2 TR max mani: 265.3 cm/sec TR max P.9 mmHg MV V2 mean: 70.9 cm/sec SV(LVOT): 32.9 ml MV mean P.3 mmHg MV V2 VTI: 26.0 cm AV VR_phl: 0.21 YOVANY(VTI)/BSA_phl: 0.30 Reading Physician:08:35 AM
== END ==
PROVIDERS: Family Provider Internal Medicine; PCP Physician Assistant; Referring Provider Internal Medicine Cardiovascular Disease; Visit Provider Internal Medicine Cardiovascular Disease
DX: I08.3 Combined rheumatic disorders of mitral, aortic and tricuspid valves (principal); I11.0 Hypertensive heart disease with heart failure; I48.21 Permanent atrial fibrillation; I50.22 Chronic systolic (congestive) heart failure; I77.89 Other specified disorders of arteries and arterioles
CPT/HCPCS: 93306

== ENCOUNTER 2023-08-09 12:27 | Outpatient (CLI) | payer MEDICARE, SELFPAY ==
[2023-08-09] VITALS (8 sets, daily range): BP systolic 125–144; BP diastolic 71–90; PULSE 65–91; RESP 15–20; TEMP 36.9; O2SAT 99–100
--- NOTE | 2023-08-09 13:00 | DI.RAD.S_ITS ---
PROCEDURE: PAIN L/S FACET INJ/BLK 1ST DAQUAN INDICATIONS: FACET ARTHOPATHY COMPARISON: [facility], XA, PAIN L/S FACET INJ/BLK 1ST DAQUAN, 03/22/2023, 13:39. FINDINGS: Fluoroscopic spot filming was performed to verify placement of spinal needles at the bilateral L4, L5, S1 level(s). These appear to be mislabeled on the film. Appropriate location(s) of the needle tip(s) was confirmed by injection of iodinated contrast. IMPRESSION: Intraoperative fluoroscopy for medial branch blocks. Dictated by: Eula Beard M.D. on 08/09/2023 at 23:47 Approved by: Eula Beard M.D. on 08/09/2023 at 23:51
[2023-08-09] MEDS: MIDAZOLAM 2 MG/2 ML VIAL IV (13:45)
[2023-08-09] MEDS: LIDOCAINE 1% 20 ML 5 ML INJ (13:50)
[2023-08-09] MEDS: iopamidoL 15 ML VIAL 3 ML INJ (13:50)
[2023-08-09] MEDS: LIDOCAINE 2% INJ SDV 5ML 10 ML INJ (13:50)
--- NOTE | 2023-08-09 14:05 | P.PCN_ITS ---
Date/Time/Diagnoses Date of procedure: 08/09/23 Time of procedure: 14:05 Pre-procedure diagnosis: 1. FACET ARTHROPATHY Post-procedure diagnosis: same Procedure Notes Procedure: 1. BILATERAL- L4, L5 and S1 DIAGNOSTIC MB BLOCKS with SA Anesthetic Indications: Caitlin is referred by Dr. Winslow for treatment of Bilateral Axial LBP. Physician: Charlie Ramos Total Fluoroscopy time (seconds): 14 Total sedation minutes: 16 Complications: none Procedure in detail & Post-procedure care: DESCRIPTION OF PROCEDURE Fluoroscopically guided, contrast-controlled bilateral L4, L5 and S1 medial branch blocks with 0.5cc of 2% Lidocaine. Following review of allergy and review of potential side effects and complications, including, but not necessarily limited to, infection, allergic reaction, local tissue breakdown, nerve injury, paralysis, stroke and possible , the patient indicated that the patient understood and agreed to proceed. An informed consent document was signed by the patient, witnessed by a nurse, and placed in the patient's chart. After review of previous anaesthesic history and IV conscious sedation the patient was deemed safe to proceed with today's procedure with IV conscious sedation as ASA class II designation. Safety time-out was performed to confirm patient ID, procedure to be performed and site of procedure. IV sedation was accomplished with a combination of 2mg of Versed was administered by the RN after DO order, titrated to patient comfort during the course of the procedure while the patient remained responsive to all verbal commands In the prone position, following sterile prep and drape of the lumbar region, the right L4, L5 and S1 anatomical location of the medial branch of the dorsal ramus was identified fluoroscopically. Subsequently an anesthetic skin wheal using 1% lidocaine solution was initiated at each of the anatomical spots. Subsequently then a 22-gauge 3.5-inch spinal needle was atraumatically introduced and advanced under fluoroscopic guidance at each of the corresponding sites at the right L4, L5 and S1 MB. After negative aspiration, 0.2cc of Isovue 200 was injected, confirming placement without vascular or intrathecal uptake. Subsequently then 0.5cc of 2% Lidocaine solution was injected at each of the corresponding sites at the right L4, L5 and S1 medial branch locations. The identical procedure was replicated on the left. The patient tolerated the procedure well without signs or symptoms of complications prior to transfer to the recovery area continued monitoring without incident. Post-procedure, the patient was monitored initiating provocative activities to measure the amount of relief from block of the facetogenic pain. The patient reported a VAS of 7 prior to the procedure and a post-procedure VAS of 1. It has been a pleasure to assist in the diagnostic and therapeutic care of your patient. POST OP INSTRUCTIONS The patient was provided with a Pain Log to complete over the next several hours and subsequent days prior to the patient's follow up with the ordering physician. If the patient has equal opportunity specialist relief to the solution applied, then they may be a candidate for medial branch rhizotomy. The patient is aware, was provided, once again, with a Pain Log and will follow up with the referring physician for review and clinical correlation
== END 2023-08-09 14:29 | disposition home or self-care (01) ==
LOC: RAD 12:28
PROVIDERS: Family Provider Internal Medicine; PCP Physician Assistant; Referring Provider Physical Medicine & Rehabilitation; Visit Provider Physical Medicine & Rehabilitation
DX: M47.816 Spondylosis without myelopathy or radiculopathy, lumbar region (principal); M47.817 Spondylosis without myelopathy or radiculopathy, lumbosacral region
CPT/HCPCS: 64493; 64494; 99152; J2250

== ENCOUNTER → 2023-10-28 11:28 | Outpatient (CLI) | payer MEDICARE, SELFPAY ==
--- NOTE | 2023-10-28 | DI.US.S_ITS ---
PROCEDURE: US PERIP VENOUS LOW EXTREM LT INDICATIONS: Pain in right knee TECHNIQUE: Real-time imaging, as well as color and pulse Doppler interrogation, were performed of the lower extremity deep veins from the inguinal ligament to the popliteal fossa, with documentation of the visualized calf veins. COMPARISON: [facility], , [facility] VENOUS LOW EXTREM LT, 10/07/2022, 11:59. FINDINGS: The common femoral, femoral, popliteal, and the visualized calf veins are normally compressible, and free of intraluminal thrombus. Color and pulse Doppler demonstrate normal phasic intraluminal flow. There is normal augmentation response to distal compression maneuver. IMPRESSION: No findings of lower extremity deep venous thrombosis. Dictated by: Feliz Cutler M.D. on 10/28/2023 at 12:41 Approved by: Feliz Cutler M.D. on 10/28/2023 at 12:41
== END ==
LOC: US 11:30
PROVIDERS: Family Provider Internal Medicine; PCP Physician Assistant; Referring Provider Orthopaedic Surgery Orthopaedic Surgery of the Spine; Visit Provider Orthopaedic Surgery Orthopaedic Surgery of the Spine
DX: M25.561 Pain in right knee (principal)
CPT/HCPCS: 93971

== ENCOUNTER 2023-11-15 10:38 | Outpatient (CLI) | payer MEDICARE, SELFPAY ==
[2023-11-15] VITALS (12 sets, daily range): BP systolic 132–164; BP diastolic 75–108; PULSE 65–77; RESP 11–18; TEMP 36.6; O2SAT 97–100
--- NOTE | 2023-11-15 11:15 | DI.RAD.S_ITS ---
PROCEDURE: PAIN L/S MED/LAT N RFA BILAT INDICATIONS: Bilateral L4-L5 and S1 medial branch RFA COMPARISON: None. FINDINGS: Fluoroscopic spot filming was performed to verify placement of spinal needles at the L4, L5 and S1 level(s), as labeled on the films. Appropriate location(s) of the needle tip(s) was confirmed by injection of iodinated contrast. IMPRESSION: Fluoro guidance was provided intraoperatively for bilateral L4, L5 and S1 medial branch RFA performed by the ordering physician. Dictated by: Yousif Joshua M.D. on 11/15/2023 at 15:23 Approved by: Yousif Joshua M.D. on 11/15/2023 at 15:25
[2023-11-15] MEDS: MIDAZOLAM 2 MG/2 ML VIAL 1 MG IV ×2 (11:52→12:11)
[2023-11-15] MEDS: fentaNYL 100 MCG/2 ML INJ 25 MCG IV ×2 (11:52→12:04)
[2023-11-15] MEDS: LIDOCAINE 1% 20 ML 5 ML INJ (11:55)
[2023-11-15] MEDS: BUPIVACAINE 0.5% (PF) 10 ML VIAL 5 ML INJ (11:55)
--- NOTE | 2023-11-15 12:30 | P.PCN_ITS ---
Date/Time/Diagnoses Date of procedure: 11/15/23 Time of procedure: 12:30 Pre-procedure diagnosis: 1. RECALCITRANT FACET ARTHROPATHY Post-procedure diagnosis: same Procedure Notes Procedure: 1. BILATERAL L4 AND L5 MEDIAL BRANCH RADIOFREQUENCY NEUROTOMY AND S1 DORSAL RAMUS BRANCH RADIOFREQUENCY NEUROTOMY Indications: Patricia is referred by Dr. Winslow for treatment of facet arthropathy. Physician: Charlie Ramos Total Fluoroscopy time (seconds): 17 Total sedation minutes: 30 Complications: none Procedure in detail & Post-procedure care: DESCRIPTION OF PROCEDURE Bilateral L4 and L5 medial branch radiofrequency neurotomy and bilateral S1 dorsal ramus radiofrequency neurotomy under fluoroscopy with conscious sedation. The patient is well known to this clinic having undergone previous facet injections with good but temporary relief. The patient has experienced appropriate, concordant relief with previous facet and median branch blocks but the patient's pain has been recalcitrant to further conservative measures. Therefore, based upon the patient's relief and persistent symptoms, the patient is considered an appropriate candidate for facet rhizotomy. All of the patient's questions regarding the risks versus benefits of the procedure, including, but not limited to, bleeding, infection, temporary as well as lasting nerve injury, paralysis, stroke, and , as well treatment alternatives were answered to satisfaction. After obtaining informed consent, denial of pertinent drug allergies, as well as being made aware of the potential risks of bleeding, infection, spinal cord trauma, paralysis, temporary and permanent nerve damage, seizure, stroke, and possible , the patient was brought to the fluoroscopy suite and positioned prone on the fluoroscopy table. The lumbar region was prepped in usual sterile fashion and covered with a fenestrated drape in the usual sterile fashion. Appropriate monitors applied including pulse oximeter, pulse, and blood pressure for regular monitoring throughout the procedure. After review of previous anaesthesic history and IV conscious sedation the patient was deemed safe to proceed with today's procedure with IV conscious sedation as ASA class II designation. Safety time-out was performed to confirm patient ID, procedure to be performed and site of procedure. IV sedation was accomplished with a combination of 2mg of Versed and 50mcg of Fentanyl administered by the RN after DO order, titrated to patient comfort during the course of the procedure while the patient remained responsive to all verbal commands. After local infiltration using 1% lidocaine, under fluoroscopic guidance, a 10- cm RF insulated needle with a 10-mm active tip was positioned parallel to the junction of the right sacral ala and the superior articulating process where the S1 dorsal ramus resides. Needle placement was confirmed with motor stimulation of .5v on the right which produced local stimulation without radicular component. The stimulation was then increased to 2v with, once again, only local multifidus stimulation without radicular component. The needle was then removed and the identical procedure was performed along the length of the right L5 medial branch with motor stimulation at .7v on the right. The identical procedure was once again performed along the length of the right L4 medial branch with motor stimulation of .5v on the right. The medial branches were then anesthetised with 0.5% Marcaine. This was then followed by two discreet lesions performed at 80 degrees Celsius for 90 seconds each. The identical procedure was repeated on the left. The patient tolerated the procedure well without signs or symptoms of complications prior to transfer to the recovery area continued monitoring without incident. The patient was then transferred to the recovery area where they were observed for an appropriate period of time after the injection. The patient reported a VAS score of 9 prior to the procedure and a post-procedure VAS of 0. POST OP INSTRUCTIONS The patient was provided a Pain Log to continue to record the patient's response to the target-specific procedure prior to the patient's follow-up visit with the referring physician. Additionally, specific post-injection care instructions and a contact number to our office were provided if concerns arise regarding possible complications associated with the procedure are suspected.
== END 2023-11-15 12:45 | disposition home or self-care (01) ==
PROVIDERS: Family Provider Internal Medicine; PCP Physician Assistant; Referring Provider Physical Medicine & Rehabilitation; Visit Provider Physical Medicine & Rehabilitation
DX: M47.816 Spondylosis without myelopathy or radiculopathy, lumbar region (principal); M47.817 Spondylosis without myelopathy or radiculopathy, lumbosacral region
CPT/HCPCS: 64635; 64636; 99152; 99153; J2250; J3010

== ENCOUNTER 2024-03-16 14:40 | Emergency (ER) | payer MEDICARE, SELFPAY ==
[2024-03-16] VITALS (11 sets, daily range): BP systolic 120–132; BP diastolic 79–95; PULSE 78–93; RESP 17–24; TEMP 36.6; O2SAT 94–97; BMI 20.7
--- NOTE | 2024-03-16 14:45 | DI.RAD.S_ITS ---
PROCEDURE: XR CHEST 1V INDICATIONS: chest pain TECHNIQUE: One view of the chest was acquired. COMPARISON: None. FINDINGS: Surgical changes and devices: None. Lungs and pleura: Lungs are clear. No pleural effusions or pneumothorax. Mediastinum: Mediastinal contours appear normal. Heart size is enlarged. Bones and chest wall: No suspicious bony lesions. Overlying soft tissues appear unremarkable. IMPRESSION: No acute pulmonary process. Dictated by: Nithya Jimenez M.D. on 03/16/2024 at 15:45 Approved by: Nithya Jimenez M.D. on 03/16/2024 at 15:45
--- NOTE | 2024-03-16 14:50 | EKG_ITS ---
[address] [address] Test Date: 2024-03-16 Pat Name: Caitlin Posada Department: Room: Gender: Female [employer]: [facility] 1945 Requested By: Order Number: [id number] Reading MD: Shaji Shepherd Measurements Intervals [place] Rate: 84 P: SC: QRS: 46 QRSD: 100 T: 34 QT: 390 QTc: 460 Interpretive Statements Atrial fibrillation Incomplete right bundle branch block Electronically Signed On 03-19-2024 15:20:01 PDT by Shaji Shepherd
--- NOTE | 2024-03-16 14:55 | ED_ITS ---
HPI - SOB/Dyspnea General Chief Complaint: Shortness of Breath/Dyspnea Stated Complaint: sent by product support manager Time Seen by Provider: 03/16/24 14:44 History of Present Illness HPI Narrative: Patient is a 78-year-old female with known aortic stenosis atrial fibrillation on Xareltoice, presenting today with increasing shortness of breath for the last 2 days. She reports that she is normally doing well she denies any fever or cough. However she reports significant dyspnea with exertion. She has not passed out or lost consciousness. She is sent by nurse at cardiology office for stat echocardiogram. Related Data Home Medications Medication Instructions Recorded Confirmed ATENOLOL (Tenormin) 12.5 mg PO Q DAY ##0 05/03/08 12/29/23 CALCIUM CARBONATE/VITAMIN D3 600 mg PO Q DAY ##0 05/03/08 12/29/23 (Oyster Shell Calcium-Vit D Tab) MULTIVITAMIN (Multivitamin 1 cap PO EVERY DAY ##0 05/03/08 12/29/23 -) VITAMIN C - 1,000 mg PO Q DAY ##0 05/03/08 12/29/23 (VITAMIN C) atenolol 50 mg tablet 50 mg PO DAILY 01/11/22 12/29/23 furosemide 20 mg tablet 20 mg PO DAILY 07/05/22 12/29/23 rivaroxaban 20 mg tablet (Xarelto) 20 mg PO DAILY 07/05/22 12/29/23 metronidazole 0.75 % topical gel 1 applic topical ONCE PM 09/29/23 12/29/23 Previous Rx's Medication Instructions Recorded tramadol 50 mg tablet 50 mg PO TID PRN pain #30 tabs 11/16/23 Allergies Allergy/AdvReac Type Severity Reaction Status Date / Time levofloxacin Allergy Unknown Rash Verified 03/16/24 15:43 Patient History Medical History Left knee DJD Right knee DJD Facet arthropathy, lumbar Greater trochanteric bursitis of left hip Chronic anticoagulation Chronic episodic atrial fibrillation Greater trochanteric bursitis of right hip Herniated nucleus pulposus, lumbar Atrial fibrillation Sacral dysfunction Scoliosis Social History Smoking Status: Former smoker Smoking Status: Former smoker alcohol intake frequency: 0-2 drinks per day Substance Use Type: does not use Exam Initial Vital Signs Initial Vital Signs: Vital Signs Temperature 97.8 F 03/16/24 14:43 Pulse Rate 93 H 03/16/24 14:43 Respiratory Rate 18 03/16/24 14:43 Blood Pressure 126/86 03/16/24 14:43 Pulse Oximetry 97 03/16/24 14:43 Oxygen Delivery Method Room Air 03/16/24 14:43 GENERAL: Alert well-appearing 78-year-old female appears younger than stated and in no acute distress. HEENT: Head atraumatic,EOMI, pupils reactive, face symmetric, moist mucous membranes CARDIOVASCULAR: Systolic murmur regular rate RESPIRATORY: Breath sounds equal bilaterally, no wheezes rales or rhonchi. ABDOMEN: Soft, nontender. Normoactive bowel sounds all 4 quadrants. No guarding or rebound. EXTREMITIES: Normal range of motion, no clubbing or edema. Neurovascularly intact NEUROLOGICAL: Alert and oriented x4.Normal gait and speech. Cranial nerves II through XII grossly intact. SKIN: Warm, dry, no laceration, no petechiae, no rashes or lesions. Course Orders Ordered: ED Orders 03/16/24 14:45 XR chest 1V Stat EKG-12 Lead Stat 03/16/24 14:46 EC echo doppler complete Stat 03/16/24 14:51 Complete Blood Count AUTO DIFF Stat Comprehensive Metabolic Panel Stat Lipase Stat Magnesium Stat NT-proBNP (BNP-Adult 18+) Stat PTT Partial Thromboplastin Zia Stat Prothrombin Time INR Stat Troponin & CK Cardiac Panel Stat 03/16/24 15:00 Covid-19 + FLU A/B + RSV - PCR Stat Discontinued Medications Furosemide (Furosemide 40 Mg/4 Ml Vial) 20 mg IV NOW ONE Stop: 03/16/24 15:38 Last Admin: 03/16/24 15:44 Dose: 20 mg Documented By: LORA Vital Signs Vital signs: Vital Signs - 8 hr 03/16/24 14:43 03/16/24 14:49 03/16/24 14:50 Temperature 97.8 F Pulse Rate 93 H 89 Respiratory Rate 18 21 Blood Pressure 126/86 126/86 Pulse Oximetry 97 94 Oxygen Delivery Method Room Air 03/16/24 14:50 03/16/24 15:00 03/16/24 15:00 Temperature Pulse Rate 87 84 Respiratory Rate 21 22 Blood Pressure 126/95 H Pulse Oximetry 96 96 Oxygen Delivery Method 03/16/24 15:30 03/16/24 15:30 03/16/24 16:00 Temperature Pulse Rate 78 Respiratory Rate 24 Blood Pressure 124/85 126/90 Pulse Oximetry 96 Oxygen Delivery Method 03/16/24 16:00 03/16/24 16:18 03/16/24 16:18 Temperature Pulse Rate 80 90 Respiratory Rate 20 17 Blood Pressure 124/84 Pulse Oximetry 94 97 Oxygen Delivery Method 03/16/24 16:30 03/16/24 16:30 03/16/24 16:53 Temperature Pulse Rate 82 Respiratory Rate 19 Blood Pressure 120/83 123/79 Pulse Oximetry 94 Oxygen Delivery Method 03/16/24 16:53 03/16/24 17:00 03/16/24 17:00 Temperature Pulse Rate 86 79 Respiratory Rate 22 22 Blood Pressure 132/91 H Pulse Oximetry 96 97 Oxygen Delivery Method 03/16/24 17:45 Temperature 97.8 F Pulse Rate Respiratory Rate Blood Pressure Pulse Oximetry Oxygen Delivery Method MDM - SOB/Dyspnea Lab Data 03/16/24 14:51 03/16/24 14:51 Labs: Lab Results 03/16/24 03/16/24 Range/Units 14:51 15:00 WBC 6.4 (4.5-11.0) X10^3/uL RBC 4.17 (4.0-5.2) X10^6/uL Hgb 14.3 (12.0-16.0) g/dL Hct 41.7 (36-46) % MCV 100.0 (80-100) fL MCH 34.2 H (26-34) PG MCHC 34.2 (30-36) % RDW 13.9 (11.6-14.8) % Plt Count 132 L (150-400) X10^3/uL Neut % (Auto) 71.1 (50-75) % Lymph % (Auto) 19.1 L (25-40) % [place] % (Auto) 8.8 (3-14) % Eos % (Auto) 0.4 L (2-4) % Baso % (Auto) 0.6 (0-2) % Neut # (Auto) 4600 (8914-8662) /uL Lymph # (Auto) 1200 (1729-7804) /uL [place] # (Auto) 600 (0-900) /uL Eos # (Auto) 0 (0-450) /uL Baso # (Auto) 0 (0-100) /uL PT 31.2 H (9.4-12.5) SECONDS INR 2.7 H (0.9-1.3) APTT 48 H (25.1-36.5) SECONDS Sodium 130 L (137-145) mmol/L Potassium 3.7 (3.4-5.1) mmol/L Chloride 96 L (98-107) mmol/L Carbon Dioxide 22 (22-32) mmol/L BUN 24 H (7-17) mg/dL Creatinine 0.70 (0.52-1.04) mg/dL Estimated GFR > 60 (>60) mL/min BUN/Creatinine Ratio 34.3 H (6-22) Glucose 106 (80-110) mg/dL Calcium 9.4 (8.4-10.2) mg/dL Magnesium 1.8 (1.6-2.3) mg/dL Total Bilirubin 1.1 (0.2-1.3) mg/dL AST 64 H (14-36) IU/L ALT 37 H (<35) IU/L Alkaline Phosphatase 89 (38-126) U/L Total Creatine Kinase 77 (30-135) U/L Troponin I < 0.012 (0.01-0.034) ng/mL NT-Pro-B Natriuret Pep 5140 H (<450) pg/mL Total Protein 7.8 (6.3-8.2) g/dL Albumin 4.7 (3.5-5.0) g/dL Globulin 3.1 (1.7-4.1) g/dL Albumin/Globulin Ratio 1.5 (1.0-2.8) Lipase 103 (23-300) U/L SARS-CoV-2 (PCR) Negative (Negative) Influenza A (RT-PCR) Flu a negative (NEGATIVE) Influenza B (RT-PCR) Flu b negative (NEGATIVE) RSV (PCR) Negative (Negative) Imaging Data Chest x-ray: Radiologist's Impression: PROCEDURE: XR CHEST 1V INDICATIONS: chest pain TECHNIQUE: One view of the chest was acquired. COMPARISON: None. FINDINGS: Surgical changes and devices: None. Lungs and pleura: Lungs are clear. No pleural effusions or pneumothorax. Mediastinum: Mediastinal contours appear normal. Heart size is enlarged. Bones and chest wall: No suspicious bony lesions. Overlying soft tissues appear unremarkable. IMPRESSION: No acute pulmonary process. Dictated by: Nithya Jimenez M.D. on 03/16/2024 at 15:45 ECG Data Attestation: I personally reviewed and interpreted this ECG as follows: Prior ECG tracings: available for review Interpretation: Atrial fibrillation rate 84 no acute ischemia MDM Narrative Medical decision making narrative: MDM CC: Shortness of breath Complicating co-morbidities: Aortic stenosis atrial fibrillation Medical records reviewed: Previous clinic visit 11/14/2023, longstanding mitral insufficiency related to mitral valve prolapse has chronic atrial fibrillation rate control on atenolol anticoagulated on Xarelto she is also noted to have severe aortic stenosis and calcified valve with aortic velocity of 2.2 and this is from echo in 2020 Differential considered: Congestive heart failure, viral syndrome pneumonia pulmonary embolus Exam documented above, pertinent findings include: Mild dyspnea irregular heart rate no significant peripheral edema Lab Test results independently reviewed as above. Pertinent findings: BNP 5140, troponin negative, sodium 130 potassium 3.7 chloride 96 carbon dioxide 22 BUN 24 creatinine 0.7, glucose 106 bilirubin 1.1 AST 64 ALT 37 Independently reviewed EKG as above atrial fibrillation rate 84 no ischemia Imaging studies independently reviewed: Cardiomegaly Consultations: Dr. Choudhary updated on patient's symptoms test results aware that we are unable to get a stat echocardiogram 6 she unlikely needs it. Agrees with gentle diuresis and outpatient follow-up Did discuss with ANIL Fierro, at product support manager's office as well she is 1 who sent the patient over she is made aware that patient did not get in an emergent echo and they can order an outpatient Treatments: Lasix 20 mg Re-evaluations: Continues to not be hypoxic breathing has improved Unable to get in ED echocardiogram although we did try. She does not have emergent need for an emergent echo she has not passed out she has not hypoxic. Discussion: Patient 78-year-old female who does have significant cardiac valve disease including mitral valve and aortic valve presenting today with 2 days of increasing shortness of breath. She has not actually hypoxic but does some mild conversational dyspnea. BNP is elevated x-ray has been reviewed by myself she does appear to have some mild cardiomegaly but no significant pulmonary edema. On exam she does not have any lower extremity pulmonary edema either. She is given 20 mg of Lasix she is urinated couple of times feels some mild improvement. At this time I do recommend outpatient gentle diuresis and instruct her to have an outpatient echocardiogram scheduled. She understands to return if symptoms worsen Discharge Plan Departure Patient Disposition: Home Clinical Impression: CHF (congestive heart failure) Instructions: DI for Heart Failure Activity Restrictions/Additional Instructions: *You have been diagnosed with CHF *What to do: At this time you do need an outpatient echocardiogram. I am sorry we were not able to accommodate you today. I have notified your product support manager's office. That they can schedule an outpatient. I would definitely be calling them on Tuesday to make sure that this is happening *Continue to take medications as directed Lasix 40 mg once a day for 1-2 days then resume 20mg once daily *Follow up with your primary care provider in 2-3 days or call [phone] *Return to ER if you should have increasing shortness of breath chest pain passing out [or] any new, worsening or concerning symptoms Prescriptions: No Action ATENOLOL (Tenormin) 12.5 mg PO Q DAY Qty: 0 CALCIUM CARBONATE/VITAMIN D3 (Oyster Shell Calcium-Vit D Tab) 600 mg PO Q DAY Qty: 0 MULTIVITAMIN (Multivitamin -) 1 cap PO EVERY DAY Qty: 0 VITAMIN C - (VITAMIN C) 1,000 mg PO Q DAY Qty: 0 tramadol 50 mg tablet 50 mg PO TID PRN (Reason: pain) Qty: 30 1RF atenolol 50 mg tablet 50 mg PO DAILY furosemide 20 mg tablet 20 mg PO DAILY Xarelto 20 mg tablet 20 mg PO DAILY metronidazole 0.75 % gel 1 applic topical ONCE PM Referrals: Brandy Rick PA-C [Primary Care Provider] - Stand Alone Forms: Patient Portal/API
--- NOTE | 2024-03-16 15:02 | PC.NURSE ---
Pt states she was at [employer] in [facility] when she was walking around and suddenly became short of breath. Pt messaged geomorphology teacher who advised her to go to the ER. Pt denies CP. Pt states she is compliant with her home medicines. No hx of heart surgery
[2024-03-16 15:03] LABS: Add Manual Diff / Slide Review NO; Basophils Absolute Auto 0 /uL (0-100); Basophils Percent Auto 0.6 % (0-2); Eosinophils Absolute Auto 0 /uL (0-450); Eosinophils Percent Auto 0.4 % (2-4); Hematocrit 41.7 % (36-46); Hemoglobin 14.3 g/dL (12.0-16.0); Lymphocytes Absolute Auto 1200 /uL (1100-4500); Lymphocytes Percent Auto 19.1 % (25-40); Mean Corpuscular HGB Conc 34.2 % (30-36); Mean Corpuscular Hemoglobin 34.2 PG (26-34); Monocytes Absolute Auto 600 /uL (0-900); Monocytes Percent Auto 8.8 % (3-14); Neutrophils Absolute Auto 4600 /uL (1500-7000); Neutrophils Percent Auto 71.1 % (50-75); Platelet Count 132 X10^3/uL (150-400); Red Blood Cell Count 4.17 X10^6/uL (4.0-5.2); Red Cell Distribution Width 13.9 % (11.6-14.8); White Blood Cell Count 6.4 X10^3/uL (4.5-11.0)
[2024-03-16 15:09] LABS: INR 2.7 (0.9-1.3); Prothrombin Time 31.2 SECONDS (9.4-12.5)
[2024-03-16 15:11] LABS: PTT Partial Thromboplastin Tim 48 SECONDS (25.1-36.5)
[2024-03-16 15:13] LABS: Alanine Aminotransferase 37 IU/L (<35); Albumin 4.7 g/dL (3.5-5.0); Albumin Globulin Ratio 1.5 (1.0-2.8); Alkaline Phosphatase 89 U/L (38-126); Aspartate Aminotransferase 64 IU/L (14-36); BUN Creatinine Ratio 34.3 (6-22); Bilirubin Total 1.1 mg/dL (0.2-1.3); Blood Urea Nitrogen 24 mg/dL (7-17); Calcium 9.4 mg/dL (8.4-10.2); Carbon Dioxide 22 mmol/L (22-32); Chloride 96 mmol/L (98-107); Creatine Kinase 77 U/L (30-135); Estimated Glomerular Filt Rate > 60 mL/min (>60); Globulin 3.1 g/dL (1.7-4.1); Glucose 106 mg/dL (80-110); HEMOLYSIS 36 (0-50); Lipase 103 U/L (23-300); Magnesium 1.8 mg/dL (1.6-2.3); Potassium 3.7 mmol/L (3.4-5.1); Sodium 130 mmol/L (137-145); Total Protein 7.8 g/dL (6.3-8.2)
[2024-03-16 15:24] LABS: NT-proBNP (BNP-Adult 18+) 5140 pg/mL (<450); Troponin I < 0.012 ng/mL (0.01-0.034)
[2024-03-16] MEDS: FUROSEMIDE 40 MG/4 ML VIAL 20 MG IV (15:44)
[2024-03-16 15:57] LABS: Influenza A - CEPHEID Flu A NEGATIVE (NEGATIVE); Influenza B - CEPHEID Flu B NEGATIVE (NEGATIVE); Respiratory Syncytial Virus Negative (Negative)
[2024-03-16 16:05] LABS: COVID-19 CEPHEID 4-PLEX PCR Negative (Negative)
== END 2024-03-16 17:46 | disposition home or self-care (01) ==
PROVIDERS: Emergency Provider Emergency Medicine; Family Provider Internal Medicine; PCP Physician Assistant
DX: I50.9 Heart failure, unspecified (principal); R07.9 Chest pain, unspecified; I48.91 Unspecified atrial fibrillation; Z79.01 Long term (current) use of anticoagulants; Z11.52 Encounter for screening for COVID-19
CPT/HCPCS: 0241U; 36415; 71045; 80053; 82550; 83690; 83735; 83880; 84484; 85025; 85610; 85730; 93005; 96374; 99284; J1940

== ENCOUNTER 2024-05-22 13:24 | Outpatient (CLI) | payer MEDICARE, SELFPAY ==
[2024-05-22] VITALS (9 sets, daily range): BP systolic 109–140; BP diastolic 66–98; PULSE 85–106; RESP 17–22; TEMP 36.8; O2SAT 95–100
--- NOTE | 2024-05-22 13:27 | DI.RAD.S_ITS ---
PROCEDURE: PAIN L/S TRANSFORAM INJECT DAQUAN COMPARISON: [facility], XA, PAIN L/S TRANSFORAM INJECT DAQUAN, 01/19/2022, 15:12. INDICATIONS: RIGHTL4/5 TF ZINA FINDINGS: 3 fluoroscopic images. Needle placement at the right L4-L5 level. IMPRESSION: Intraoperative guidance provided. Dictated by: Chinmay Doyle M.D. on 05/22/2024 at 21:00 Approved by: Chinmay Doyle M.D. on 05/22/2024 at 21:01
[2024-05-22] MEDS: MIDAZOLAM 2 MG/2 ML VIAL 1 MG IV (14:47)
[2024-05-22] MEDS: DEXAMETHASONE 10 MG/ML VIAL INJ (14:52)
[2024-05-22] MEDS: BETAMETHASONE 30 MG/5 ML MDV 6 MG INJ (14:52)
[2024-05-22] MEDS: BUPIVACAINE 0.25% (PF) VIAL 2 ML INJ (14:52)
[2024-05-22] MEDS: iopamidoL 15 ML VIAL 3 ML INJ (14:52)
--- NOTE | 2024-05-22 15:12 | P.PCN_ITS ---
Date/Time/Diagnoses Date of procedure: 05/22/24 Time of procedure: 15:12 Pre-procedure diagnosis: 1. FORAMINAL STENOSIS WITH LE SYMPTOMS Post-procedure diagnosis: same Procedure Notes Procedure: 1. FLUOROSCOPICALLY GUIDED CONTRAST CONTROLLED TRANSFORAMINAL EPIDURAL STEROID INJECTION - RIGHT L4/5 TFESI Indications: Caitlin is referred by Dr. Winslow for treatment of Foraminal Stenosis with Right LE Symptoms Physician: Charlie Ramos Total Fluoroscopy time (seconds): 9 Total sedation minutes: 18 Complications: none Procedure in detail & Post-procedure care: FINDINGS Foraminal Nerve Root Compression secondary to disc disease and facet hypertrophy DESCRIPTION OF PROCEDURE Following review of allergy and review of potential side effects and complications, including, but not necessarily limited to, infection, allergic reaction, local tissue breakdown, stroke, temporary or permanent nerve injury, paralysis, and possible , the patient indicated that the patient understood and agreed to proceed. An informed consent document was signed by the patient, witnessed by a nurse, and placed in the patient's chart. Additionally, other treatment options including medications, modalities, and physical therapy were reviewed with the patient. After review of previous anaesthesic history and IV conscious sedation the patient was deemed safe to proceed with today?s procedure with IV conscious sedation as ASA class II designation. Safety time-out was performed to confirm patient ID, procedure to be performed and site of procedure. IV sedation was accomplished with a combination of 1mg of Versed was administered by the RN after DO order, titrated to patient comfort during the course of the procedure while the patient remained responsive to all verbal commands In the prone position following sterile prep and drape of the lumbar region, the right L4/5 posterior neuroforamen was identified fluoroscopically. The skin was anesthetized via a 25-gauge 1.5-inch needle with 1% lidocaine solution. At this point, a 25-gauge 3.5-inch spinal needle was atraumatically introduced and advanced under fluoroscopic guidance through the posterior right L4/5 neuroforamen to approximately the anterior aspect of the canal. Depth was confirmed on lateral view. Following negative aspiration, injection of approximately 1.5cc of Isovue 200 under live fluoroscopy in the AP view con firmed excellent flow along the nerve root, into the epidural space without vascular or intrathecal uptake observed Radiological data, including multiple fluoroscopic views of the lumbosacral spine, reveal a spinal needle at the right L4/5 posterior neuroforamen. Subsequent views show flow of contrast material flowing superiorly and inferiorly along the nerve root confirming epidural flow. Subsequently, a test dose of 1.5 cc of 1% lidocaine solution was administered and patient was observed for two minutes for signs or symptoms of complications, including abdominal pain, shortness of breath, bilateral upper or lower extremity weakness, nausea and vomiting, prior to steroid injection. At this point, a total of 2cc or 10mg of dexamethasone and 6mg of betamethasone was injected without incident. The procedure tolerated the procedure well without signs or symptoms of complications prior to transfer to the recovery area continued monitoring without incident. The patient was then transferred to the recovery area where they were observed for an appropriate time after the injection. The patient reported a VAS score of 7 prior to the procedure and a post- procedure VAS of 0. POST OP INSTRUCTIONS The patient was provided a Pain Log to continue to record their response to the target-specific procedure prior to follow-up visit with their referring p hysician. Additionally, specific post-injection care instructions and a contact number to our office were provided if concerns arise regarding possible complications associated with the procedure are suspected.
== END 2024-05-22 15:30 | disposition home or self-care (01) ==
LOC: RAD 13:25
PROVIDERS: Family Provider Internal Medicine; PCP Physician Assistant; Referring Provider Physical Medicine & Rehabilitation; Visit Provider Physical Medicine & Rehabilitation
DX: M48.061 Spinal stenosis, lumbar region without neurogenic claudication (principal); M51.16 Intervertebral disc disorders with radiculopathy, lumbar region; M47.26 Other spondylosis with radiculopathy, lumbar region
CPT/HCPCS: 64483; 99152; 99153; J0702; J1100; J2250; J3490

== ENCOUNTER → 2024-06-06 14:00 | Outpatient (CLI) | payer MEDICARE, SELFPAY ==
[2024-06-06 14:31] LABS: Add Manual Diff / Slide Review NO; Basophils Absolute Auto 0 /uL (0-100); Basophils Percent Auto 0.5 % (0-2); Eosinophils Absolute Auto 0 /uL (0-450); Eosinophils Percent Auto 0.6 % (2-4); Hematocrit 34.5 % (36-46); Hemoglobin 11.9 g/dL (12.0-16.0); Lymphocytes Absolute Auto 800 /uL (1100-4500); Lymphocytes Percent Auto 11.2 % (25-40); Mean Corpuscular HGB Conc 34.4 % (30-36); Mean Corpuscular Volume 98.9 fL (80-100); Monocytes Absolute Auto 500 /uL (0-900); Monocytes Percent Auto 6.8 % (3-14); Neutrophils Absolute Auto 5500 /uL (1500-7000); Neutrophils Percent Auto 80.9 % (50-75); Platelet Count 227 X10^3/uL (150-400); Red Blood Cell Count 3.49 X10^6/uL (4.0-5.2); Red Cell Distribution Width 15.2 % (11.6-14.8); White Blood Cell Count 6.8 X10^3/uL (4.5-11.0)
[2024-06-06 14:59] LABS: Alanine Aminotransferase 24 IU/L (<35); Albumin Globulin Ratio 1.5 (1.0-2.8); Alkaline Phosphatase 119 U/L (38-126); Aspartate Aminotransferase 43 IU/L (14-36); BUN Creatinine Ratio 48.6 (6-22); Bilirubin Total 1.1 mg/dL (0.2-1.3); Blood Urea Nitrogen 34 mg/dL (7-17); Calcium 9.2 mg/dL (8.4-10.2); Carbon Dioxide 30 mmol/L (22-32); Chloride 83 mmol/L (98-107); Estimated Glomerular Filt Rate > 60 mL/min (>60); Globulin 2.7 g/dL (1.7-4.1); Glucose 116 mg/dL (80-110); HEMOLYSIS < 15 (0-50); Potassium 3.6 mmol/L (3.4-5.1); Sodium 123 mmol/L (137-145); Total Protein 6.7 g/dL (6.3-8.2)
[2024-06-06 15:00] LABS: Prothrombin Time 43.8 SECONDS (9.4-12.5)
[2024-06-06 15:08] LABS: NT-proBNP (BNP-Adult 18+) 4630 pg/mL (<450)
== END ==
LOC: LAB 14:02
PROVIDERS: Family Provider Internal Medicine; PCP Physician Assistant; Referring Provider Internal Medicine Cardiovascular Disease; Visit Provider Internal Medicine Cardiovascular Disease
DX: I34.1 Nonrheumatic mitral (valve) prolapse (principal); I50.22 Chronic systolic (congestive) heart failure; I35.0 Nonrheumatic aortic (valve) stenosis; I34.0 Nonrheumatic mitral (valve) insufficiency
CPT/HCPCS: 36415; 80053; 83880; 85025; 85610

== ENCOUNTER → 2024-06-08 14:34 | Outpatient (CLI) | payer MEDICARE, SELFPAY | PROVIDERS: Family Provider Internal Medicine; PCP Physician Assistant; Referring Provider Physician Assistant; Visit Provider Surgery | DX: S81.811A Laceration without foreign body, right lower leg, initial encounter (principal); R60.0 Localized edema | CPT/HCPCS: 11042; 87070; 87075; 87205; 99214 ==

== ENCOUNTER → 2024-06-15 13:46 | Outpatient (CLI) | payer MEDICARE, SELFPAY | LOC: WC 13:57 | PROVIDERS: Family Provider Internal Medicine; PCP Physician Assistant; Referring Provider Physician Assistant; Visit Provider Physician Assistant | DX: S81.811A Laceration without foreign body, right lower leg, initial encounter (principal); R60.0 Localized edema; L53.9 Erythematous condition, unspecified; M79.661 Pain in right lower leg; I50.9 Heart failure, unspecified | CPT/HCPCS: 11042; 99213 ==

== ENCOUNTER → 2024-07-05 14:28 | Outpatient (CLI) | payer MEDICARE, SELFPAY | PROVIDERS: Family Provider Internal Medicine; PCP Internal Medicine; Referring Provider Physician Assistant; Visit Provider Surgery | DX: S81.811A Laceration without foreign body, right lower leg, initial encounter (principal); R60.0 Localized edema; L53.9 Erythematous condition, unspecified; M79.661 Pain in right lower leg; I50.9 Heart failure, unspecified; I73.9 Peripheral vascular disease, unspecified; Z79.01 Long term (current) use of anticoagulants | CPT/HCPCS: 97602; 99213 ==

== ENCOUNTER → 2024-07-23 14:01 | Outpatient (CLI) | payer MEDICARE, SELFPAY ==
--- NOTE | 2024-07-23 14:06 | DI.RAD.S_ITS ---
PROCEDURE: XR CHEST 2V INDICATIONS: CHF TECHNIQUE: 2 views of the chest were acquired. COMPARISON: [facility], CR, XR CHEST 1 VIEW, 06/19/2024, 9:25. [facility], CR, XR CHEST 1V, 03/16/2024, 14:53. FINDINGS: Surgical changes and devices: Surgical clip overlying the T1 vertebral body. Lungs and pleura: Small bilateral pleural effusions with associated passive atelectasis. No pneumothorax. Mediastinum: Mediastinal contours are normal. Cardiomegaly. Bones and chest wall: No suspicious bony abnormalities. Soft tissues appear unremarkable. IMPRESSION: Mild congestive heart failure exacerbation. Dictated by: Martin Morales M.D. on 07/23/2024 at 16:14 Approved by: Martin Morales M.D. on 07/23/2024 at 16:15
== END ==
PROVIDERS: Family Provider Internal Medicine; PCP Internal Medicine; Referring Provider Registered Nurse; Visit Provider Registered Nurse
DX: I50.22 Chronic systolic (congestive) heart failure (principal)
CPT/HCPCS: 71046

== ENCOUNTER → 2024-08-29 14:43 | Outpatient (CLI) | payer MEDICARE, SELFPAY | PROVIDERS: Family Provider Internal Medicine; PCP Internal Medicine; Referring Provider Physician Assistant; Visit Provider Surgery | DX: I87.2 Venous insufficiency (chronic) (peripheral) (principal); L97.312 Non-pressure chronic ulcer of right ankle with fat layer exposed; L97.322 Non-pressure chronic ulcer of left ankle with fat layer exposed; S81.811A Laceration without foreign body, right lower leg, initial encounter; E11.628 Type 2 diabetes mellitus with other skin complications; R60.0 Localized edema; L98.8 Other specified disorders of the skin and subcutaneous tissue | CPT/HCPCS: 11042; 99213; 99214 ==

== ENCOUNTER → 2024-09-04 13:52 | Outpatient (CLI) | payer MEDICARE, SELFPAY | LOC: WC 13:54 | PROVIDERS: Family Provider Internal Medicine; PCP Internal Medicine; Referring Provider Internal Medicine; Visit Provider Surgery | DX: S81.811A Laceration without foreign body, right lower leg, initial encounter (principal); L97.312 Non-pressure chronic ulcer of right ankle with fat layer exposed; L97.322 Non-pressure chronic ulcer of left ankle with fat layer exposed; I87.2 Venous insufficiency (chronic) (peripheral); I73.9 Peripheral vascular disease, unspecified; L98.8 Other specified disorders of the skin and subcutaneous tissue; R60.0 Localized edema; R23.4 Changes in skin texture | CPT/HCPCS: 99212; 99213 ==

== ENCOUNTER → 2024-09-11 12:50 | Outpatient (CLI) | payer MEDICARE, SELFPAY ==
--- NOTE | 2024-09-11 12:51 | DI.US.S_ITS ---
PROCEDURE: US ARTERIAL DUPLEX LE BI INDICATIONS: non-healing ulcers to [facility] lower extremities TECHNIQUE: Color and pulse Doppler interrogation was performed of both lower extremity arterial systems, with image documentation. COMPARISON: None. FINDINGS: Right lower extremity: Common femoral artery: 142.2 cm/sec, with biphasic flow. Deep femoral artery: 26.2 cm/sec, with biphasic flow. Proximal superficial femoral artery: 42.4 cm/sec, with triphasic flow. Mid superficial femoral artery: 48.9 cm/sec, with triphasic flow. Distal superficial femoral artery: 37.4 cm/sec, with triphasic flow. Popliteal artery: 32.9 cm/sec, with triphasic flow. Posterior tibial artery: 48.1 cm/sec, with triphasic flow. Anterior tibial artery/dorsalis pedis: 57 cm/sec, with triphasic flow. Serrato-scale imaging description: Mild scattered atheromatous disease. Left lower extremity: Common femoral artery: 52.1 cm/sec, with triphasic flow. Deep femoral artery: 48.5 cm/sec, with biphasic flow. Proximal superficial femoral artery: 57.8 cm/sec, with triphasic flow. Mid superficial femoral artery: 56.4 cm/sec, with triphasic flow. Distal superficial femoral artery: 53.4 cm/sec, with triphasic flow. Popliteal artery: 35.6 cm/sec, with triphasic flow. Posterior tibial artery: 97.9 cm/sec, with triphasic flow. Anterior tibial artery/dorsalis pedis: 48.6 cm/sec, with biphasic flow. Serrato-scale imaging description: Moderate scattered atheromatous disease. IMPRESSION: Right * 20-49 percent stenosis of the right common femoral artery with decreased velocities distally suggestive of likely additional flow-limiting proximal iliac stenosis. Left * Decreased velocities throughout the left lower extremity consistent with flow limiting proximal iliac stenosis. * 20-49 percent stenosis of the left posterior tibial artery. Dictated by: Deshawn Gordon M.D. on 09/12/2024 at 13:18 Approved by: Deshawn Gordon M.D. on 09/12/2024 at 13:42
== END ==
PROVIDERS: Family Provider Internal Medicine; PCP Internal Medicine; Referring Provider Surgery; Visit Provider Surgery
DX: L97.919 Non-pressure chronic ulcer of unspecified part of right lower leg with unspecified severity (principal); I70.202 Unspecified atherosclerosis of native arteries of extremities, left leg; I70.201 Unspecified atherosclerosis of native arteries of extremities, right leg
CPT/HCPCS: 93925

== ENCOUNTER → 2024-09-12 14:19 | Outpatient (CLI) | payer MEDICARE, SELFPAY | LOC: WC 14:22 | PROVIDERS: Family Provider Internal Medicine; PCP Internal Medicine; Referring Provider Physician Assistant; Visit Provider Surgery | DX: S81.801A Unspecified open wound, right lower leg, initial encounter (principal); L98.8 Other specified disorders of the skin and subcutaneous tissue; L97.322 Non-pressure chronic ulcer of left ankle with fat layer exposed; I87.2 Venous insufficiency (chronic) (peripheral); R23.4 Changes in skin texture; R60.0 Localized edema; I50.9 Heart failure, unspecified | CPT/HCPCS: 11042; 99213 ==

== ENCOUNTER → 2024-09-20 13:39 | Outpatient (CLI) | payer MEDICARE, SELFPAY | PROVIDERS: Family Provider Internal Medicine; PCP Internal Medicine; Referring Provider Physician Assistant; Visit Provider Surgery | DX: S81.801A Unspecified open wound, right lower leg, initial encounter (principal); I87.2 Venous insufficiency (chronic) (peripheral); L98.8 Other specified disorders of the skin and subcutaneous tissue; R60.0 Localized edema | CPT/HCPCS: 11042 ==

== ENCOUNTER → 2024-09-27 14:09 | Outpatient (CLI) | payer MEDICARE, SELFPAY ==
--- NOTE | 2024-09-27 | OV.WND_ITS ---
PROGRESS NOTE DETAILS PATIENT NAME: TIERRA GIPSON PATIENT NUMBER: [id number] CLINICIAN: JACLYN SAUCEDO RN PATIENT DATE OF : 1945 PHYSICIAN / DISTRIBUTION ANALYST: WENDY TORRES PATIENT SUBJECTIVE CHIEF COMPLAINT THIS INFORMATION WAS OBTAINED FROM THE PATIENT. I HAVE NO PAIN AND NO DRAINAGE (FROM THE WOUND.) GENERAL NOTES RIGHT LEG LACERATION ALLERGIES LEVAQUIN HPI THIS INFORMATION WAS OBTAINED FROM THE PATIENT. THE FOLLOWING HPI ELEMENTS WERE DOCUMENTED FOR THE PATIENT'S WOUND: LOCATION: [facility] DURATION: 08/29/24, 09/09/24 CONTEXT: LACERATION/ PRESSURE THE PATIENT IS AN 79 YEAR OLD FEMALE WITH PMH OF CHF, AORTIC STENOSIS, LOWER EXTREMITY EDEMA, AND CHRONIC BACK PAIN WHO RETURNS TODAY FOR FOLLOW UP OF A WOUND OF THE RIGHT LOWER EXTREMITY. THE PATIENT IS RECEIVING DRESSING CHANGES WITH ADAPTIC AND HYDROFERA BLUE TO THE WOUNDS ON THE RIGHT LOWER EXTREMITY WITH TUBIGRIP FOR COMPRESSION. THE PATIENT UNDERWENT AORTIC VALVE AND MITRAL VALVE REPLACEMENTS IN JULY AND IS SCHEDULED FOR TRICUSPID VALVE REPLACEMENT NEXT WEEK. SHE REPORTS THAT HER APPETITE AND SHORTNESS OF BREATH HAVE BOTH IMPROVED. ON EXAM TODAY THE WOUND OF THE ANTERIOR RIGHT LOWER EXTREMITY HAS IMPROVED MEASUREMENTS AND GOOD GRANULATION TISSUE. THE ULCER ON THE POSTERIOR ASPECT OF THE LEFT HEEL IS HEALED. TRAUMATIC WOUNDS ON THE PROXIMAL/LATERAL ASPECT OF THE RIGHT LOWER EXTREMITY ARE MUCH IMPROVED. LOWER EXTREMITY EDEMA IS MUCH IMPROVED. LABS: 09/11/24: ARTERIAL DOPPLER: RIGHT: 20-49 PERCENT STENOSIS OF THE RIGHT COMMON FEMORAL ARTERY WITH DECREASED VELOCITIES DISTALLY SUGGESTIVE OF LIKELY ADDITIONAL FLOW-LIMITING PROXIMAL ILIAC STENOSIS. LEFT: DECREASED VELOCITIES THROUGHOUT THE LEFT LOWER EXTREMITY CONSISTENT WITH FLOW LIMITING PROXIMAL ILIAC STENOSIS. 20-49 PERCENT STENOSIS OF THE LEFT POSTERIOR TIBIAL ARTERY 06/08/24: TERRANCE: PAD BILATERAL 06/08/24: CULTURE: MIXED SKIN ARACELIS 06/06/24: SKAGIT - BNP 4630, NA 123, K+ 3.6, CR 0.70, GFR >69, GLUCOSE 116, ALT 43, AST 24, ALK PHOS 119, WBC 6.8, HGB 11.9, HCT 34.5 FAMILY HISTORY THIS INFORMATION WAS OBTAINED FROM THE PATIENT. HEART DISEASE- MOTHER, FATHER TIERRA GIPSON [id number] 1945 LUNG DISEASE- FATHER SOCIAL HISTORY THIS INFORMATION WAS OBTAINED FROM THE PATIENT. FORMER SMOKER: 1989 ALCOHOL USE: 2 DRINKS DAILY CAFFEINE USE: 2 CUPS/DAY LIVES IN: HOME MARITAL STATUS: RETIRED: HOUSEWIFE MEDICAL HISTORY THIS INFORMATION WAS OBTAINED FROM THE PATIENT. PATIENT HAS A MEDICAL HISTORY OF: ATRIAL FIBRILLATION LOPEZ'S DISEASE BASAL CELL CARCINOMA SQUAMOUS CELL CARCINOMA CONGESTIVE HEART FAILURE BACK PAIN ADDITIONAL INFORMATION DOES PATIENT HAVE A HISTORY OF CANCER? YES? COMPLETE ALL QUESTIONS.: YES LOCATION OF CANCER: FACE PATIENT UNDERWENT RADIATION TREATMENT? IF YES, ANSWER QUESTION BELOW.: NO SURGICAL HISTORY THIS INFORMATION WAS OBTAINED FROM THE PATIENT. PATIENT HAS A SURGICAL HISTORY OF: SKIN CANCER REMOVALS- CARDIAC VALVE REPLACEMENT- 08/06/2024 (AORTIC VALVE ) CARDIAC VALVE REPLACEMENT- 08/16/2024 (MITRAL VALVE) REVIEW OF SYSTEMS (ROS) THIS INFORMATION WAS OBTAINED FROM THE PATIENT. COMPLAINTS AND SYMPTOMS PATIENT COM PLAINS OF: CARDIOVASCULAR (CENTRAL): DYSPNEA ON EXERTION CARDIOVASCULAR (CENTRAL/PERIPHERAL): LOWER EXTREMITY (LEG) SWELLING CO-MORBID CONDITIONS: CONGESTIVE HEART FAILURE, PERIPHERAL ARTERIAL DISEASE HEMATOLOGIC/LYMPHATIC: SWELLING PRIOR WOUND HISTORY: DRAINAGE RESPIRATORY: SHORTNESS OF BREATH PATIENT DENIES COM PLAINTS OR SY M PTOM S RELATED TO: GENERAL NOTES CARDIOVASCULAR (CENTRAL): CHEST PAIN CONSTITUTIONAL SYMPTOMS (GENERAL HEALTH): CHILLS, FEVER, LOSS OF APPETITE TIERRA GIPSON [id number] 1945 PRIOR WOUND HISTORY: BLEEDING, ERYTHEMA, MALODOR, PAIN RESPIRATORY: COUGH OBJECTIVE VITALS HEIGHT/LENGTH: 65 IN (165.1 CM), WEIGHT: 121.3 LBS (55.14 KGS), BMI: 20.2, TEMPERATURE: 98.0 ?F (36.67 ?C), PULSE: 66 BPM, RESPIRATORY RATE: 16 BREATHS/MIN, BLOOD PRESSURE: 107/67 MMHG, PULSE OXIMETRY: 97 %. PHYSICAL EXAM CONSTITUTIONAL: VITAL SIGNS REVIEWED AND NOTED. WELL DEVELOPED, WELL NOURISHED, AND IN NO ACUTE DISTRESS. ALERT AND ORIENTED X3. RESPIRATORY: EVEN RESPIRATIONS WITHOUT USE OF ACCESSORY MUSCLES. NO INTERCOASTAL RETRACTIONS NOTED. EVEN AND NON LABORED RESPIRATION. INTEGUMENTARY (HAIR, SKIN): NO ERYTHEMA. LOWER EXTREMITY EDEMA MUCH IMPROVED. SEE WOUND ASSESSMENT. SKIN WARM AND DRY. NO RASHES. NEUROLOGICAL: SENSATION: SYMMETRIC FUNCTION BY INFORMAL OBSERVATION. PSYCHIATRIC: ORIENTATION TO TIME, PLACE AND PERSON: NORMAL AFFECT WITH NORMAL THOUGHT PATTERN. ADDITIONAL INFORMATION THE PATIENT'S POTENTIAL TO HEAL IS: GOOD. LOWER EXTREMITY ASSESSMENT EDEMA ASSESSMENT: LEFT EXTREMITY: EDEMA IS PRESENT COMPRESSION DEVICE IN USE: NO RIGHT EXTREMITY: EDEMA IS PRESENT COMPRESSION DEVICE IN USE: NO VASCULAR ASSESSMENT LEFT EXTREMITY COLORS, HAIR GROWTH, AND CONDITIONS: EXTREMITY COLOR: PIGMENTED HAIR GROWTH ON EXTREMITY: NO TEMPERATURE OF EXTREMITY: COOL CAPILARY REFILL: > 3 SECONDS ERYTHEMA: NO DEPENDENT RUBOR: NO HYPERPIGMENTATION: YES LIPODERMATOSCLEROSIS: NO RIGHT EXTREMITY COLORS, HAIR GROWTH, AND CONDITIONS: EXTREMITY COLOR: PIGMENTED HAIR GROWTH ON EXTREMITY: NO TEMPERATURE OF EXTREMITY: COOL CAPILARY REFILL: > 3 SECONDS ERYTHEMA: NO DEPENDENT RUBOR: NO HYPERPIGMENTATION: YES LIPODERMATOSCLEROSIS: NO OFF-LOADING: LEFT OFF-LOADING DEVICE IN USE: NO RIGHT OFF-LOADING DEVICE IN USE: NO TIERRA GIPSON [id number] 1945 WOUND ASSESSMENT(S) WOUND #3 RIGHT, MEDIAL LEG IS A CHRONIC FULL THICKNESS LACERATION ACQUIRED ON 08/08/2024 AND HAS RECEIVED A STATUS OF NOT HEALED. INITIAL WOUND ENCOUNTER MEASUREMENTS ARE 1.2CM LENGTH X 0.6CM WIDTH X 0.2 CM DEPTH, WITH AN AREA OF 0.72 SQ CM AND A VOLUME OF 0.144 CUBIC CM.INITIAL WOUND ENCOUNTER PREVIOUS MEASUREMENTS FROM 09/20/2024 ARE 1.4CM LENGTH X 0.8CM WIDTH X 0.1CM DEPTH, WITH AN AREA OF 1.12 SQ CM AND A VOLUME OF 0.112 CUBIC CM. ADIPOSE IS EXPOSED. NO TUNNELING HAS BEEN NOTED. NO SINUS TRACT HAS BEEN NOTED. NO UNDERMINING HAS BEEN NOTED. THERE IS A MODERATE AMOUNT OF SEROSANGUINEOUS DRAINAGE NOTED WHICH HAS NO ODOR. THE PATIENT REPORTS A WOUND PAIN OF LEVEL 4/10. THE WOUND MARGIN IS ATTACHED WOUND BED HAS YES, BRIGHT RED, FIRM, GRANULATION, YES SLOUGH, NO ESCHAR, NO EPITHELIALIZATION. THE PERIWOUND SKIN EXHIBITED EDEMA AND HEMOSIDEROSIS. THE PERIWOUND SKIN DID NOT EXHIBIT BRAWNY INDURATION, EXCORIATION, INDURATION, CALLUS, CREPITUS, FLUCTUANCE, RASH, MACERATION, ATROPHIE BRIDGET, CYANOSIS, ECCHYMOSIS, ERYTHEMA, PALLOR AND RUBOR. THE PERIWOUND SKIN WAS NOT FRIABLE, DRY/SCALY AND MOIST. THE TEMPERATURE OF THE PERIWOUND SKIN IS WNL. LOCAL PULSE IS DOPPLER. ADDITIONAL INFORMATION OTHER DEVITALIZED TISSUE PRESENT: BIOFILM TERRANCE/VASCULAR COMPLETED?: ARTERIAL ULTRASOUND ORDERED 08/29/24. WOUND #6 RIGHT, PROXIMAL LEG IS AN ACUTE FULL THICKNESS LACERATION ACQUIRED ON 09/09/2024 AND HAS RECEIVED A STATUS OF NOT HEALED. INITIAL WOUND ENCOUNTER MEASUREMENTS ARE 0.4CM LENGTH X 0.2CM WIDTH X 0.1 CM DEPTH, WITH AN AREA OF 0.08 SQ CM AND A VOLUME OF 0.008 CUBIC CM.INITIAL WOUND ENCOUNTER PREVIOUS MEASUREMENTS FROM 09/20/2024 ARE 1.5CM LENGTH X 3.5CM WIDTH X 0.1CM DEPTH, WITH AN AREA OF 5.25 SQ CM AND A VOLUME OF 0.525 CUBIC CM. ADIPOSE IS EXPOSED. NO TUNNELING HAS BEEN NOTED. NO SINUS TRACT HAS BEEN NOTED. NO UNDERMINING HAS BEEN NOTED. THERE IS A MODERATE AMOUNT OF SANGUINEOUS DRAINAGE NOTED WHICH HAS NO ODOR. THE PATIENT REPORTS A WOUND PAIN OF LEVEL 0/10. THE WOUND MARGIN IS ATTACHED WOUND BED HAS NO, GRANULATION, YES SLOUGH, YES ESCHAR, NO EPITHELIALIZATION. THE PERIWOUND SKIN TEXTURE IS NORMAL. THE PERIWOUND SKIN MOISTURE IS NORMAL. THE PERIWOUND SKIN COLOR IS NORMAL. THE TEMPERATURE OF THE PERIWOUND SKIN IS WNL. LOCAL PULSE IS PALPABLE. GENERAL NOTES ONLY ONE WOUND NOW ADDITIONAL INFORMATION OTHER DEVITALIZED TISSUE PRESENT: BIOFILM ASSESSMENT ACTIVE PROBLEMS ICD-10 (ENCOUNTER DIAGNOSIS) L97.312 - NON-PRESSURE CHRONIC ULCER OF RIGHT ANKLE WITH FAT LAYER EXPOSED (ENCOUNTER DIAGNOSIS) L97.322 - NON-PRESSURE CHRONIC ULCER OF LEFT ANKLE WITH FAT LAYER EXPOSED (ENCOUNTER DIAGNOSIS) I87.2 - VENOUS INSUFFICIENCY (CHRONIC) (PERIPHERAL) (ENCOUNTER DIAGNOSIS) S81.801D - UNSPECIFIED OPEN WOUND, RIGHT LOWER LEG, SUBSEQUENT ENCOUNTER GENERAL NOTES OPEN WOUND RIGHT LOWER LEG IMPROVED OPEN WOUND PROXIMAL RIGHT LOWER EXTREMITY IMPROVED THE FOLLOWING FACTORS HAVE BEEN IDENTIFIED THAT MAY AFFECT WOUND HEALING: DEVITALIZED TISSUE BIOFILM EDEMA CHF GIPSON TIERRA Yoselin [id number] 1945 GOALS: REMOVED DEVITALIZED TISSUE REMOVE AND PREVENT BIOFILM REDUCE SWELLING ASSESS ARTERIAL CIRCULATION PREVENT INFECTION WOUND CLOSURE PLAN: DEBRIDEMENT, CONTINUE DRESSING CHANGES WITH ADAPTIC ANDHYDROFERA BLUE TO WOUND RIGHT LOWER EXTREMITY WITH TUBIGRIP FOR COMPRESSION. CONTINUE PROTEIN SUPPLEMENTATION, KEEP LEGS ELEVATED, FOLLOW UP IN 2 WEEKS FOR A RECHECK. PROCEDURES WOUND #3 WOUND #3 (LACERATION) IS LOCATED ON THE RIGHT, MEDIAL LEG. A SKIN/SUBCUTANEOUS TISSUE LEVEL SURGICAL DEBRIDEMENT WITH A TOTAL AREA DEBRIDED OF 0.72 SQ CM. WAS PERFORMED BY WENDY TORRES MD. SUBCUTANEOUS WAS REMOVED ALONG WITH DEVITALIZED TISSUE: BIOFILM, EXUDATE AND SLOUGH. THE FOLLOWING INSTRUMENT(S) WERE USED: CURETTE. PAIN CONTROL WAS ACHIEVED USING EMLA LIDOCAINE/PRILOCAINE 2.5%/2.5%. A TIME OUT WAS CONDUCTED PRIOR TO THE START OF THE PROCEDURE. A MINIMAL AMOUNT OF BLEEDING WAS CONTROLLED WITH PRESSURE. THE PROCEDURE WAS TOLERATED WELL WITH A PAIN LEVEL OF 0 THROUGHOUT AND A PAIN LEVEL OF 0 FOLLOWING THE PROCEDURE. POST DEBRIDEMENT MEASUREMENTS: 1.2CM LENGTH X 0.6CM WIDTH X 0.3CM DEPTH; WITH AN AREA OF 0.72 SQ CM AND A VOLUME OF 0.216 CUBIC CM. ADDITIONAL INFORMATION MUSCLE FASCIA OR BONE REMOVED AND SENT TO PATHOLOGY?: NO WOUND #6 WOUND #6 (LACERATION) IS LOCATED ON THE RIGHT, PROXIMAL LEG. A SKIN/SUBCUTANEOUS TISSUE LEVEL SURGICAL DEBRIDEMENT WITH A TOTAL AREA DEBRIDED OF 0.08 SQ CM. WAS PERFORMED BY WENDY TORRES MD. SUBCUTANEOUS WAS REMOVED ALONG WITH DEVITALIZED TISSUE: BIOFILM, EXUDATE AND SLOUGH. THE FOLLOWING INSTRUMENT(S) WERE USED: CURETTE. PAIN CONTROL WAS ACHIEVED USING EMLA LIDOCAINE/PRILOCAINE 2.5%/2.5%. A TIME OUT WAS CONDUCTED PRIOR TO THE START OF THE PROCEDURE. A MINIMAL AMOUNT OF BLEEDING WAS CONTROLLED WITH PRESSURE. THE PROCEDURE WAS TOLERATED WELL WITH A PAIN LEVEL OF 0 THROUGHOUT AND A PAIN LEVEL OF 0 FOLLOWING THE PROCEDURE. POST DEBRIDEMENT MEASUREMENTS: 0.4CM LENGTH X 0.2CM WIDTH X 0.2CM DEPTH; WITH AN AREA OF 0.08 SQ CM AND A VOLUME OF 0.016 CUBIC CM. ADDITIONAL INFORMATION MUSCLE FASCIA OR BONE REMOVED AND SENT TO PATHOLOGY?: NO PLAN WOUND ORDERS: WOUND #3 RIGHT, MEDIAL LEG CLEANSER CLEANSE WOUND WITH NORMAL SALINE CLEANSE WOUND AND PAWAN WOUND WITH A NON-CYTOTOXIC WOUND CLEANSER. - NOVEMBER PURCHASE VASHE. PROCEDURE / ANESTHETIC 5% TOPICAL LIDOCAINE TO WOUND BED PRIOR TO PROCEDURE, IN CLINIC ONLY. DRESSING ORDERS APPLY DRESSING(S) AND SECURE WITH: - TARA SWEENEY, HYDROFERA BLUE READY TRANSFER FOAM CUT TO COVER WOUND. TIERRA GIPSON [id number] 1945 COVER WITH SILICONE BORDERED FOAM DRESSING CHANGE FREQUENCY CHANGE DRESSING EVERY OTHER DAY. WOUND #6 RIGHT, PROXIMAL LEG DRESSING ORDERS APPLY DRESSING(S) AND SECURE WITH: - ADAPTIC CURAD, HYDROFERA BLUE, SILICONE BORDER FOAM DRESSING CHANGE FREQUENCY CHANGE DRESSING EVERY OTHER DAY. ADDITIONAL ORDERS: HAND HYGIENE HAND HYGIENE - WASH HANDS BEFORE AND AFTER WOUND CARE. CALL THE WOUND CENTER AT [phone] IF YOU HAVE SIGNS OR SYMPTOMS OF INFECTION, FEVER CHILLS OR SHAKES, INCREASED DRAINAGE, INCREASED ODOR OR UNUSUAL REDNESS. AFTER WOUND CENTER HOURS PLEASE NOTIFY YOUR PCP OR GO TO THE EMERGENCY ROOM. COMPRESSION/EDEMA CONTROL ELEVATE LEG(S) ABOVE THE LEVEL OF THE HEART MUCH POSSIBLE. AVOID STANDING IN ONE POSITION FOR MORE THAN 10 MINUTES. AVOID SITTING WITH LEGS DOWN. DO NOT CROSS LEGS WHEN SITTING. APPLY KNEE-HIGH GRADIENT COMPRESSION STOCKINGS AT 20-30MMHG - TUBULAR COMPRESSION STOCKING SIZE E TO BILATERAL LOWER LEGS OR PERSONAL COMPRESSION STOCKING OFF-LOADING / PRESSURE RELIEF TOTAL NON-WEIGHT BEARING USING: - FLOAT YOUR HEELS/ANKLES WHEN RESTING IN BED, RECLINER, OR COUCH. OTHER ORDER: - AVOID SHOES WITH BACKS ON THEM THAT WOULD CAUSE PRESSURE TO WOUNDS. DIETARY TAKE VITAMIN C 1000MG BY MOUTH DAILY. TAKE ZINC 25MG BY MOUTH DAILY. INCREASE THE PROTEIN IN YOUR DIET. FOLLOW-UP APPOINTMENTS WE ARE PLACING AN ORDER FOR WOUND SUPPLIES ON YOUR BEHALF WITH [facility]OUND [facility] SUPPLIES. IF YOU HAVE NOT RECEIVED YOUR ORDER WITHIN 3 BUSINESS DAYS, PLEASE CALL [facility] SUPPLIES AT [phone] TO SPEAK WITH A PLUMBING DRAFTER OR EMAIL: RETURN APPOINTMENT 2 WEEKS SCRIBING ATTESTATION I ATTEST, THE NURSE, THAT I SCRIBED THESE ORDERS FOR THE WOUND CARE PROVIDER. PROVIDER REVIEW AND ATTESTATION: REVIEWED AND EVALUATED LABS. REVIEWED HOSPITAL RECORDS. DISCUSSED THE PLAN OF CARE @ BEDSIDE WITH - THE PATIENT I AGREE AND ATTEST TO THE ABOVE INFORMATION PROVIDED FROM OTHER LICENSED PROFESSIONALS. PLAN OF CARE: 01. ENSURE/ESTABLISH OPTIMAL BLOOD FLOW : - COMPLETE LOWER EXTREMITY ASSESSMENT STATUS: CONTINUED DATE: 09/27/2024 - PERFORM NON-INVASIVE VASCULAR TESTING (I.E. TERRANCE) AND DOCUMENT FINDINGS. CONSIDER REPEATING WHEN WOUND HEALING <40% AFTER 30 DAYS OF WOUND CARE. - ARTERIAL ULTRASOUND ORDERED. STATUS: CONTINUED DATE: 09/27/2024 02. ASSESS FOR/TREAT INFECTION : - EVALUATE FOR SIGNS AND SYMPTOMS OF INFECTION AND DOCUMENT FINDINGS. STATUS: CONTINUED DATE: 09/27/2024 03. DEBRIDE WEEKLY OR MORE OFTEN PRN : - EVALUATE PATIENT IN CENTER WEEKLY TO ASSESS WOUND BED AND MARGINS FOR NEED FOR DEBRIDEMENT. STATUS: CONTINUED DATE: 09/27/2024 - DEBRIDEMENT BY ANY METHOD TO REMOVE DEVITALIZED/NECROTIC TISSUE TO PROMOTE HEALING AND PREVENT FURTHER COMPLICATIONS. GOAL IS TO STIMULATE AND/OR MAINTAIN ACUTE PHASE OF WOUND HEALING BY REDUCING BACTERIAL BURDEN AND DEVITALIZED/NON-VIABLE TISSUE. STATUS: CONTINUED DATE: 09/27/2024 04. OPTIMIZE GLUCOSE CONTROL AND NUTRITION : TIERRA GIPSON [id number] 1945 - ORDER/REVIEW PERTINENT LABS TO EVALUATE RENAL FUNCTION, GLUCOSE CONTROL, AND NUTRITIONAL STATUS. STATUS: CONTINUED DATE: 09/27/2024 05. OFFLOADING PLAN : - EVALUATE PLAN FOR OFFLOADING STATUS: CONTINUED DATE: 09/27/2024 - ADVISE PATIENT TO OFFLOAD THE FOOT ULCER. (I.E. HALF SHOE, SURGICAL SHOE, INSERT, CUSTOM SHOE, FELT AND FOAM, CAM WALKER, MULTIPODUS SPLINT, TOTAL CONTACT CAST, BI-VALVE CAST, POSTERIOR SPLINT). STATUS: CONTINUED DATE: 09/27/2024 06. OPTIMIZE HOST FACTORS: - ASSESS AND REVIEW PATIENT HISTORY FOR WOUND ETIOLOGY, CO-MORBID CONDITIONS, MEDICATION REGIME, AND SMOKING HISTORY. STATUS: CONTINUED DATE: 09/27/2024 07. DRESSING SELECTION : - EVALUATE FOR DRESSING-RELATED FACTORS, SUCH AVAILABILITY, WEAR TIME, ADAPTABILITY AND USE TO BETTER OPTIMIZE WOUND HEALING AND PATIENT COMPLIANCE. STATUS: CONTINUED DATE: 09/27/2024 08. ADVANCED MODALITIES : - SET TREATMENT GOALS ACCORDING TO PATIENT AND/OR CAREGIVER?S ABILITY/ COMPLIANCE. STATUS: CONTINUED DATE: 09/27/2024 09. FALL PREVENTION : - COMPLETE FALL ASSESSMENT. STATUS: COMPLETED DATE: 08/29/2024 10. PAIN MANAGEMENT : - COMPLETE PAIN ASSESSMENT STATUS: COMPLETED DATE: 08/29/2024 - INSTRUCT THE PATIENT TO CALL ?TIME-OUT? IF PAIN IS TOO INTENSE DURING PROCEDURE. STATUS: CONTINUED DATE: 09/27/2024 11. MEASURABLE GOALS FOR WOUND HEALING AND/OR HYPERBARIC OXYGEN THERAPY : - DECREASE WOUND DIMENSIONS STATUS: CONTINUED DATE: 09/27/2024 - REDUCE EDEMA STATUS: CONTINUED DATE: 09/27/2024 12. DURATION/FREQUENCY OF WOUND CARE VISITS : - 2X WEEKLY FOR 30 DAYS STATUS: CONTINUED DATE: 09/27/2024 ELECTRONIC SIGNATURE(S) SIGNED BY: DATE: WENDY TORRES MD 09/27/2024 15:47:56 (PT) ENTERED BY: WENDY TORRES MD ON 09/27/2024 15:43:11 (PT) TIERRA GIPSON [id number] 1945
== END ==
PROVIDERS: Family Provider Internal Medicine; PCP Internal Medicine; Referring Provider Physician Assistant; Visit Provider Surgery
DX: S81.811A Laceration without foreign body, right lower leg, initial encounter (principal); I87.2 Venous insufficiency (chronic) (peripheral); L98.8 Other specified disorders of the skin and subcutaneous tissue; R60.0 Localized edema
CPT/HCPCS: 11042; 99213

== ENCOUNTER → 2024-11-02 13:25 | Outpatient (CLI) | payer MEDICARE, SELFPAY | PROVIDERS: Family Provider Internal Medicine; PCP Internal Medicine; Referring Provider Internal Medicine; Visit Provider Physician Assistant | DX: S81.811D Laceration without foreign body, right lower leg, subsequent encounter (principal) | CPT/HCPCS: 99212; 99213 ==

== ENCOUNTER → 2024-11-06 12:37 | Outpatient (CLI) | payer MEDICARE, SELFPAY ==
--- NOTE | 2024-11-06 12:41 | DI.RAD.S_ITS ---
PROCEDURE: XR CHEST 2V INDICATIONS: dyspnea TECHNIQUE: 2 views of the chest were acquired. COMPARISON: Merged With [facility], CR, XR CHEST 2V, 07/23/2024, 14:07. FINDINGS: Heart, mediastinum and pulmonary vascular: Moderate cardiomegaly is unchanged. Aortic valve endoprostheses in stable position without complication. There are 5 metallic clips are triangulated over the heart. Pulmonary vessels are mildly congested Lungs: Moderate interstitial disease throughout both lungs has progressed and likely represents edema. Pleural spaces: Moderate right and small left pleural effusions have progressed Bones and soft tissues: Mild compression fractures are seen throughout the midthoracic spine IMPRESSION: Moderate acute CHF. Five small metallic clips triangulated over the cardiac silhouette which were not seen on the comparison examination nearly 4 months ago. The exact nature and location of these is unknown-consider chest CT unless there is a logical explanation. No clips were described in the left breast on recent mammogram less than 1 month ago Dictated by: Rupert Ruby M.D. on 11/07/2024 at 11:28 Approved by: Rupert Ruby M.D. on 11/07/2024 at 11:33
--- NOTE | 2024-11-06 12:43 | EKG_ITS ---
[address] [address] Test Date: 2024-11-06 Pat Name: Caitlin Posada Department: [facility] Room: Gender: Female [employer] Engineer: AMARI : 1945 Requested By: Order Number: [id number] Reading MD: Rupert Gonzales MD Measurements Intervals Hannah Rate: 106 P: MD: QRS: 99 QRSD: 100 T: 63 QT: 360 QTc: 478 Interpretive Statements Atrial fibrillation with rapid ventricular response Rightward axis Electronically Signed On 11-06-2024 15:23:04 PDT by Rupert Gonzales MD
[2024-11-06 13:32] LABS: Hemoglobin 11.2 g/dL (12.0-16.0); Mean Corpuscular HGB Conc 33.8 % (30-36); Mean Corpuscular Hemoglobin 29.9 PG (26-34); Mean Corpuscular Volume 88.4 fL (80-100); Platelet Count 224 X10^3/uL (150-400); Red Blood Cell Count 3.73 X10^6/uL (4.0-5.2); Red Cell Distribution Width 19.6 % (11.6-14.8); White Blood Cell Count 3.8 X10^3/uL (4.5-11.0)
[2024-11-06 13:50] LABS: Alanine Aminotransferase 25 IU/L (<35); Albumin 4.4 g/dL (3.5-5.0); Albumin Globulin Ratio 1.3 (1.0-2.8); Alkaline Phosphatase 108 U/L (38-126); Aspartate Aminotransferase 48 IU/L (14-36); BUN Creatinine Ratio 40.8 (6-22); Bilirubin Total 0.8 mg/dL (0.2-1.3); Blood Urea Nitrogen 31 mg/dL (7-17); Calcium 9.2 mg/dL (8.4-10.2); Carbon Dioxide 28 mmol/L (22-32); Chloride 93 mmol/L (98-107); Cholesterol 161 mg/dL (140-199); Estimated Glomerular Filt Rate > 60 mL/min (>60); Globulin 3.3 g/dL (1.7-4.1); Glucose 114 mg/dL (80-110); HDL Cholesterol 77 mg/dL (40-60); HEMOLYSIS < 15 (0-50); LDL Cholesterol Calculated 74 mg/dL (<100); Potassium 3.9 mmol/L (3.4-5.1); Sodium 132 mmol/L (137-145); Total Protein 7.7 g/dL (6.3-8.2); Triglycerides 51 mg/dL (35-150)
[2024-11-06 13:58] LABS: NT-proBNP (BNP-Adult 18+) 8590 pg/mL (<450)
[2024-11-06 14:21] LABS: TSH w/ Reflex to FT4 0.05 uIU/mL (0.47-4.68)
[2024-11-06 15:30] LABS: Free T4, Direct Thyroxine 1.24 ng/dL (0.78-2.19)
== END ==
PROVIDERS: Family Provider Internal Medicine; PCP Internal Medicine; Referring Provider Internal Medicine; Visit Provider Internal Medicine
DX: I50.22 Chronic systolic (congestive) heart failure (principal); E78.2 Mixed hyperlipidemia; I48.20 Chronic atrial fibrillation, unspecified
CPT/HCPCS: 71046; 80053; 80061; 83880; 84439; 84443; 85027; 93005; 93010

== ENCOUNTER → 2024-11-14 12:34 | Outpatient (CLI) | payer MEDICARE, SELFPAY ==
--- NOTE | 2024-11-14 12:58 | DI.ECHO.S_ITS ---
[facility] : : [address] : : [place] : : [id number] : : Phone: [phone] Echocardiogram Report + + :Name: TIERRA GIPSON Study Date: 11/14/2024 Height: 65 in : :[facility] ReadingLocation: Weight: 110 lb : : Gender: Female BSA: 1.5 m2 : :: 1945 Age: 79 yrs BP: 114/77 mmHg: :Reason For Study: S/P TRICUSPID VALVE (KAUSHIK) : :Ordering Physician: ALBERT, : :DELMY Performed By: Rita Dc : :Referring: FAUSTO DOWNING : + + Interpretation Summary The left ventricle is borderline dilated. The ejection fraction is estimated to be 35-40%. There has been no significant change since the previous exam. There is moderate global hypokinesis of the left ventricle. Diastolic function could not be accurately assessed due to unobtainable data. The right ventricle is moderately dilated. Right ventricular systolic function is mild to moderately reduced. There has been no significant change since the previous exam. The left atrium is severely dilated. The right atrium is severely dilated. Doppler evidence suggests a left to right interatrial shunt. Mitral valve clips are present. The mitral valve mean gradient is 5.5 mmHg. Compared to the prior echo exam, there has been a decrease in the severity of mitral stenosis. There is moderate mitral regurgitation. Compared to the prior echo study, there has been no change in the severity of mitral regurgitation. There is a bioprosthetic aortic valve. The peak aortic velocity is 1.71 m/sec. Tricuspid valve clips are present which are new since prior echo study. Tricuspid mean gradient of 1.3mmHg. There is moderate tricuspid regurgitation. Compared to the prior echo exam, there has been a decrease in TR severity. The right ventricular systolic pressure is estimated to be at least 65 mmHg based on an estimated right atrial pressure of 15 mm Hg. RVOT prox measures at 4.5cm with RVOT distal measurement of 3.0cm. There is a small left-sided pleural effusion. Procedure: A two-dimensional transthoracic echocardiogram with color flow and Doppler was performed. The study quality was technically good. Comparison is made with the echocardiogram of 09/18/2024. The patient was in atrial fibrillation with heart rates between 57-81 bpm during the exam. Left Ventricle: The left ventricle is borderline dilated. The estimated left ventricular end diastolic volume is 120 ml. Left ventricular volume index to BSA of 78.35ml/m2. Left ventricular internal dimension indexed to BSA of 3.5cm/m^2. There is normal left ventricular wall thickness. The ejection fraction is estimated to be 35-40%. There has been no significant change since the previous exam. There is moderate global hypokinesis of the left ventricle. Diastolic function could not be accurately assessed due to unobtainable data. Right Ventricle: The right ventricle is moderately dilated. Right ventricular systolic function is mild to moderately reduced. There has been no significant change since the previous exam. Atria: The left atrium is severely dilated. The right atrium is severely dilated. Doppler evidence suggests a left to right interatrial shunt. Mitral Valve: Mitral valve clips are present. The mitral valve mean gradient is 5.5 mmHg. Compared to the prior echo exam, there has been a decrease in the severity of mitral stenosis. There is moderate mitral regurgitation. Compared to the prior echo study, there has been no change in the severity of mitral regurgitation. The mitral regurgitant jet is eccentrically directed. Aortic Valve: There is a bioprosthetic aortic valve. There is trace perivalvular regurgitation around the prosthetic aortic valve. The peak aortic velocity is 1.71 m/sec. The aortic valve mean gradient is 5.6 mmHg. Tricuspid Valve: Tricuspid valve clips are present which are new since prior echo study. Tricuspid mean gradient of 1.3mmHg. There is moderate tricuspid regurgitation. Compared to the prior echo exam, there has been a decrease in TR severity. The right ventricular systolic pressure is estimated to be at least 65 mmHg based on an estimated right atrial pressure of 15 mm Hg. Pulmonic Valve: The pulmonic valve leaflets are thin and pliable; valve motion is normal. There is mild pulmonic regurgitation. Great Vessels: The dimensions of the ascending aorta are normal. RVOT prox measures at 4.5cm with RVOT distal measurement of 3.0cm. The IVC is dilated (diameter is greater than 2.1 cm) and it collapses less than 50% with a sniff. This suggests a high right atrial pressure of 15 mm Hg. Pericardium/ Pleura There is no pericardial effusion. There is a small leftsided pleural effusion. MMode/2D Measurements & Calculations LVIDd: 5.3 cm LVOT diam: 2.0 cm LVIDs: 4.3 cm asc Aorta Diam: 3.6 cm FS: 19.7 % Ao Arch Diam (Prox Trans): 2.9 cm EPSS: 2.3 cm IVSd: 0.84 cm LVPWd: 0.79 cm LV mendez. diameter/BSA (cm/m^2): 3.5 LV sys. diameter/BSA (cm/m^2): 2.8 LA A2 area: 38.5 cm2 RA long axis: 7.0 cm LA A4 area: 41.8 cm2 RA area: 37.0 cm2 LA length (vol): 8.2 cm RA vol: 166.3 ml LA vol: 167.1 ml RA : 108.4 ml/m2 LA vol index: 108.9 ml/m2 IVC diam: 3.1 cm RVD1 (basal): 5.0 cm RVOT Distal_phl: 3.0 cm RVD2 (mid): 4.1 cm RVOT Prox_phl: 4.1 cm TAPSE: 1.3 cm Doppler Measurements & Calculations Ao V2 max: 171.8 cm/sec LVOT Max Mani: 61.0 cm/sec Ao V2 mean: 104.9 cm/sec LV V1 max P.5 mmHg Ao max P.8 mmHg LV V1 VTI: 10.8 cm Ao mean P.6 mmHg YOVANY(I,D): 1.2 cm2 Ao V2 VTI: 28.0 cm YOVANY(V,D): 1.1 cm2 sev ratio: 0.39 YOVANY indexed to BSA (cm^2/m^2): 0.80 Med Peak E' Mani: 4.8 cm/sec TR max mani: 353.2 cm/sec Lat Peak E' Mani: 5.8 cm/sec TR max P.9 mmHg MVA(VTI): 0.78 cm2 PA V2 max: 87.2 cm/sec PA V2 mean: 53.5 cm/sec PA mean P.3 mmHg PA pr(Accel): 48.8 mmHg MV V2 mean: 101.4 cm/sec SV(LVOT): 34.3 ml MV mean P.5 mmHg MV V2 VTI: 44.1 cm TV mean P.2 mmHg Qp/Qs: 3.1/1.0 Reading Physician:07:51 PM
== END ==
PROVIDERS: Family Provider Internal Medicine; PCP Internal Medicine
DX: I08.1 Rheumatic disorders of both mitral and tricuspid valves (principal); J90 Pleural effusion, not elsewhere classified; I50.42 Chronic combined systolic (congestive) and diastolic (congestive) heart failure; Z95.818 Presence of other cardiac implants and grafts; Z95.2 Presence of prosthetic heart valve
CPT/HCPCS: 93306

== ENCOUNTER → 2025-02-22 13:12 | Outpatient (CLI) | payer MEDICARE, SELFPAY ==
[2025-02-22 13:36] LABS: Hematocrit 33.8 % (36-46); Hemoglobin 11.4 g/dL (12.0-16.0); Mean Corpuscular HGB Conc 33.7 % (30-36); Mean Corpuscular Hemoglobin 31.1 PG (26-34); Mean Corpuscular Volume 92.3 fL (80-100); Platelet Count 158 X10^3/uL (150-400)
[2025-02-22 13:53] LABS: Alanine Aminotransferase 20 IU/L (<35); Albumin 4.5 g/dL (3.5-5.0); Albumin Globulin Ratio 1.5 (1.0-2.8); Alkaline Phosphatase 93 U/L (38-126); Blood Urea Nitrogen 32 mg/dL (7-17); Calcium 9.4 mg/dL (8.4-10.2); Carbon Dioxide 30 mmol/L (22-32); Chloride 96 mmol/L (98-107); Estimated Glomerular Filt Rate > 60 mL/min (>60); Globulin 3.0 g/dL (1.7-4.1); Glucose 96 mg/dL (70-99); HEMOLYSIS < 15 (0-50); Potassium 3.9 mmol/L (3.4-5.1); Sodium 135 mmol/L (137-145); Total Protein 7.5 g/dL (6.3-8.2)
[2025-02-22 14:03] LABS: NT-proBNP (BNP-Adult 18+) 3110 pg/mL (<450)
[2025-02-22 14:24] LABS: TSH w/ Reflex to FT4 3.21 uIU/mL (0.47-4.68)
== END ==
PROVIDERS: PCP Internal Medicine; Referring Provider Physical Medicine & Rehabilitation; Visit Provider Physical Medicine & Rehabilitation
DX: I50.22 Chronic systolic (congestive) heart failure (principal); M51.26 Other intervertebral disc displacement, lumbar region; E78.2 Mixed hyperlipidemia
CPT/HCPCS: 36415; 80053; 83880; 84443; 85027

== ENCOUNTER → 2025-07-14 11:14 | Outpatient (CLI) | payer MEDICARE, SELFPAY ==
--- NOTE | 2025-07-14 11:15 | DI.MRI.S_ITS ---
PROCEDURE: MR PELVIS WO CON INDICATIONS: Pain in left hip TECHNIQUE: Noncontrast coronal and axial T1 spin echo and STIR through the bony pelvis. COMPARISON: [facility], CR, XR PELVIS WITH LATERAL HIP LEFT, 07/04/2025, 13:14. FINDINGS: Image quality: Diagnostic. Patient motion is noted. Bones: There is marrow edema involving bilateral sacrum as well as bilateral femoral necks and proximal femoral shafts without discrete fracture line or cortical disruption. No displaced fracture or dislocation. No other area of abnormal marrow signal. No evidence of avascular necrosis of femoral heads. 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 No ankylosis or erosion. Degenerative disc disease in visualized lower lumbar spine is seen. Tendons: Tendinosis involving bilateral distal gluteus medius and minimus tendons are seen. No fluid distension of the trochanteric bursa. The nearby proximal iliotibial band also appears intact. The iliopsoas tendon appears intact, without adjacent bursal fluid collections or evidence for impingement syndrome. Tendinosis involving bilateral hamstring tendon origins at ischial tuberosity is seen. There is T2 hyperintense signal and fraying in bilateral superior anterior acetabular labrum suggestive of labral tear. Soft tissues: Low-grade strain involving bilateral adductor epifanio muscles are seen. No other muscle signal abnormalities. No joint effusions. No free pelvic fluid. Bladder wall thickness is normal. Genitourinary structures and bowel loops appear normal where visualized. IMPRESSION: 1. Edema involving bilateral sacrum and bilateral proximal femur as described above without definite cortical disruption or fracture line. Finding is concerning for early stress fracture versus contusion. Clinical correlation and follow-up is recommended. 2. 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 No evidence of avascular necrosis of femoral head. 3. Bilateral distal gluteus medius and minimus tendinosis. Tendinosis also seen involving bilateral hamstring tendon origins at ischial tuberosity. Low-grade muscle strain involving bilateral adductor epifanio muscles. 4. Large [id number] shows suggestion of bilateral superior anterior acetabular labral tears. Dictated by: Yousif Joshua M.D. on 07/15/2025 at 12:44 Approved by: Yousif Joshua M.D. on 07/15/2025 at 12:59
== END ==
LOC: MRI 11:14
PROVIDERS: PCP Internal Medicine; Referring Provider Student in an Organized Health Care Education/Training Program; Visit Provider Student in an Organized Health Care Education/Training Program
DX: M47.816 Spondylosis without myelopathy or radiculopathy, lumbar region (principal); M67.952 Unspecified disorder of synovium and tendon, left thigh; M25.552 Pain in left hip; R60.0 Localized edema
CPT/HCPCS: 72195